=== PATIENT | female | born 1940 | race Caucasian/White ===

== ENCOUNTER → 2024-03-07 11:31 | Outpatient (REF) | payer OTHER, SELFPAY | LOC: RAD 11:31 | PROVIDERS: ATTENDING PHYSICIAN Physician Assistant Medical | DX: R10.84 Generalized abdominal pain (principal) | CPT/HCPCS: 74176 ==

== ENCOUNTER 2024-05-15 12:50 | Emergency (ER) | payer OTHER, SELFPAY ==
[2024-05-15 13:08] VITALS: BP 130/73
--- NOTE | 2024-05-15 14:02 | ED.GENMED ---
History of Present Illness
<Rodolfo Moulton PA-C - Last Filed: 05/16/24 09:11>
General
Chief Complaint: Musculo-Skeletal Complaint
Time Seen by Provider: 05/15/24 13:52
History of Present Illness
History of Present Illness:
83-year-old female with history of COPD and former tobacco abuse presents to the emergency department for evaluation of intractable bilateral hip pain radiating down both legs, worsening over the past 2 months. Reports that she developed severe
pain with any degree of movement. Over the past several weeks she has had increasing cramping and numbness to bilateral calves. She was started on a course of prednisone as well as gabapentin by her primary care physician. She comes into the ER
today due to concern for urinary incontinence that began suddenly last night. Occurred last night as well as this morning however she was able to spontaneously provide a urine specimen in the emergency department. Denies any current saddle
anesthesias. No fevers or night sweats.
<Sam Tadeo PA-C - Last Filed: 05/15/24 18:26>
General
Source: patient
Exam Limitations: none
Past History
<Rodolfo Moulton PA-C - Last Filed: 05/16/24 09:11>
Past History
ED Past Medical History: HTN
ED Past Surgical History: Orthopedic (Gil knee replacements, R hip replacement)
Social History
Tobacco: Former smoker
Alcohol: None
Personal:
Living: with family
Employment: Retired
Family History
Family History: Other (Noncontributory)
Review of Systems
<Rodolfo Moulton PA-C - Last Filed: 05/16/24 09:11>
Review of Systems
Allergies reviewed?: Yes
All Other Systems: ROS reviewed and negative except as documented in HPI and ROS
Phy Exam
<Rodolfo Moulton PA-C - Last Filed: 05/16/24 09:11>
Physical Exam
Physical Exam:
GEN: Well appearing, NAD, WDWN
HEENT: Oral mucosa moist, no scleral icterus
Cardiac: Regular rate
Lung: No respiratory distress, no tachypnea
MSK: No gross deformity or injuries. Bilateral hip ROM normal however pain is elicited particularly w/ external and internal rotation.
Skin: Good color, no pallor or jaundice, no rashes
Neuro: AO x3, BLE strength 5/5 in all mcclure. Patellar reflexes blunted bilaterally. Normal sensation throughout
Psych: Calm, cooperative
Course
<Rodolfo Moulton PA-C - Last Filed: 05/16/24 09:11>
Orders/Labs/Results
Orders:
Orders
05/15/24 13:25
Urinalysis Reflex To Culture Urgent
Date Specimen was Collected: 05/15/24
Time Specimen was Collected: 13:24
Urine Microscopic Reflex Cult Urgent
05/15/24 14:02
CR Lumbar Spine Comp Min 4 Vw* Urgent
Comment:
Reason For Exam: low back/bilat hip pain
05/15/24 14:11
Complete Blood Count/With Diff Urgent
Comprehensive Metabolic Panel Urgent
05/15/24 14:41
Morphine Sulfate 4 mg IV NOW STA
05/15/24 15:47
MR Lumbar Without Contrast Urgent
Comment:
Reason For Exam: low back pain, urinary incontinence
Recent pill cam endoscopy?: No
05/15/24 16:43
Ketorolac [Toradol] 15 mg IV NOW STA
CR Chest Portable - 1 View Urgent
Comment:
Reason For Exam: hypoxia
Reason Study Needs to be Portable: Other
Abnormal Lab Results
05/15/24 05/15/24
13:25 14:11
RDW 16.3 H %
(11.5-14.5)
Absolute Neuts (auto) 6.8 H 10^3/uL
(1.4-6.5)
Absolute Monos (auto) 1.0 H 10^3/uL
(0.1-0.6)
Lymphocytes % 15.4 L %
(20.5-51.1)
Monocytes % 10.6 H %
(1.7-9.3)
BUN 38 H mg/dl
(7-17)
Creatinine 1.2 H mg/dL
(0.6-1.0)
Glucose 119 H mg/dl
(70-99)
Leukocyte Esterase Rfl Trace A
(Negative)
05/15/24 14:11
05/15/24 14:11
Vital Signs
Initial and Last Documented VS:
Initial Vital Signs
Temp Pulse Resp BP Pulse Ox
98.4 F 71 18 130/73 92
05/15/24 13:08 05/15/24 13:08 05/15/24 13:08 05/15/24 13:08 05/15/24 13:08
Last Documented Vital Signs
Temp Pulse Resp BP Pulse Ox
98.4 F 72 14 138/78 92
05/15/24 13:08 05/15/24 18:15 05/15/24 18:15 05/15/24 17:57 05/15/24 18:15
Khrislt;Sam Tadeo PA-C - Last Filed: 05/15/24 18:26>
Orders/Labs/Results
Orders:
Orders
05/15/24 13:25
Urinalysis Reflex To Culture Urgent
Date Specimen was Collected: 05/15/24
Time Specimen was Collected: 13:24
Urine Microscopic Reflex Cult Urgent
05/15/24 14:02
CR Lumbar Spine Comp Min 4 Vw* Urgent
Comment:
Reason For Exam: low back/bilat hip pain
05/15/24 14:11
Complete Blood Count/With Diff Urgent
Comprehensive Metabolic Panel Urgent
05/15/24 14:41
Morphine Sulfate 4 mg IV NOW STA
05/15/24 15:47
MR Lumbar Without Contrast Urgent
Comment:
Reason For Exam: low back pain, urinary incontinence
Recent pill cam endoscopy?: No
05/15/24 16:43
Ketorolac [Toradol] 15 mg IV NOW STA
CR Chest Portable - 1 View Urgent
Comment:
Reason For Exam: hypoxia
Reason Study Needs to be Portable: Other
Abnormal Lab Results
05/15/24 05/15/24
13:25 14:11
RDW 16.3 H %
(11.5-14.5)
Absolute Neuts (auto) 6.8 H 10^3/uL
(1.4-6.5)
Absolute Monos (auto) 1.0 H 10^3/uL
(0.1-0.6)
Lymphocytes % 15.4 L %
(20.5-51.1)
Monocytes % 10.6 H %
(1.7-9.3)
BUN 38 H mg/dl
(7-17)
Creatinine 1.2 H mg/dL
(0.6-1.0)
Glucose 119 H mg/dl
(70-99)
Leukocyte Esterase Rfl Trace A
(Negative)
05/15/24 14:11
05/15/24 14:11
Vital Signs
Initial and Last Documented VS:
Initial Vital Signs
Temp Pulse Resp BP Pulse Ox
98.4 F 71 18 130/73 92
05/15/24 13:08 05/15/24 13:08 05/15/24 13:08 05/15/24 13:08 05/15/24 13:08
Last Documented Vital Signs
Temp Pulse Resp BP Pulse Ox
98.4 F 72 14 138/78 92
05/15/24 13:08 05/15/24 18:15 05/15/24 18:15 05/15/24 17:57 05/15/24 18:15
<Rodolfo Moulton PA-C - Last Filed: 05/16/24 09:11>
MDM/Problems Addressed
MDM/Problems Addressed:
Patient has mild neurologic deficits and has good rectal tone nevertheless cannot discount the severity of acute urinary incontinence. Postvoid residual in the emergency department is normal and she did have 1 bout of urination she was continent.
Given the concern for progressively worsening lumbar spinal disease with potential clot urgent MRI which we will obtain in the emergency department. Disposition will be pending MRI imaging results.
<Sam Tadeo PA-C - Last Filed: 05/15/24 18:26>
*Critical Care Note
Total Time (30-74mins, 75-104mins- exclusive of procedures): Not Applicable
<Rodolfo Moulton PA-C - Last Filed: 05/16/24 09:11>
Update Note
Update Note:
Post void residual 14mL
<Sam Tadeo PA-C - Last Filed: 05/15/24 18:26>
Update Note
Update Note:
Post void residual 14mL
received care of patient upon pending MRI. There is no findings on the MRI to show cause for urinary incontinence. There is a herniated disc at L4-L5. Patient is examined she is resting comfortably in bed.
No indication for any intervention at this point. Admission not indicated. Patient does have underlying history of COPD. She follows with her family doctor but did recommend following up with a spiral winder as her pulse ox's are borderline low
here. There is no respiratory distress on assessment.
ED Attending Note
<Rodolfo Moulton PA-C - Last Filed: 06/21/24 09:11>
-
Portions of this chart may have been created with voice recognition software.� Occasional wrong word or��sound alike� substitutions may have occurred due to the inherent limitations of voice recognition software.
Discharge Plan
Departure
Patient Disposition: Home (Routine Discharge)
Date of Disposition: 05/15/24
Time of Disposition: 18:24
Patient with high blood pressure during this ER visit?: No
Discharge Problem:
Acute lumbar radiculopathy
Prescriptions:
No Action
paroxetine HCl 10 MG tablet
10 mg PO DAILY
lefifsrh-grn-IY-lycopen-lutein [Centrum Silver] 1 EACH tablet
1 ea PO DAILY
irbesartan 150 MG tablet
150 mg PO .IN THE AM
calcium carb-D3-mag ox-zinc ox [Fly Mag Zinc Plus D3] 1 EACH tablet
1 ea PO DAILY
hydrocodone-acetaminophen [[place]] 1 EACH tablet
1 ea PO Q6HPRN PRN (Reason: pain) Qty: 40 0RF
Rx Instructions:
Take 1 tablet four times a day, every 6 hours for pain
lorazepam 1 MG tablet
1 mg PO TIDPRN PRN (Reason: pain/spasms) Qty: 40 0RF
Referrals:
Bravo Monson MD [Family Provider] -
Activity Restrictions/Additional Instructions:
Please follow-up with your family doctor for further evaluation. Return here for worsening symptoms.
Interventions
Interventions:
*Risk Screen - Suicide Last Done: 05/15/24 13:08
*General Assessment Last Done: 05/15/24 13:08
*Neglect/Abuse Screening Last Done: 05/15/24 13:08
ED- Fall Risk Assessment Last Done: 05/15/24 14:09
*ED COVID-19 Vaccine History Last Done: 05/15/24 14:09
*Nursing Disposition Last Done: 05/15/24 18:41
ED-Musculoskeletal Assessment Last Done: 05/15/24 14:09
Discharge Date and Time
Discharge Date/Time: 05/15/24 18:41
Print Language: HAITIAN
[2024-05-15 14:08] VITALS: BMI 33.8
[2024-05-15 14:09] VITALS: BP 136/62
[2024-05-15 14:12] LABS: Urine Albumin Negative (Neg - Trace); Urine Bilirubin Negative (Negative); Urine Character Clear (Clear); Urine Color Yellow; Urine Glucose Negative (Negative); Urine Ketone Negative (Negative); Urine Leukocyte Trace (Negative); Urine Nitrite Negative (Negative); Urine Occult Blood Negative (Negative); Urine Urobilinogen Negative (Neg - 1+)
[2024-05-15 14:15] VITALS: BP 136/62
[2024-05-15 14:22] LABS: % Basophils 0.6 % (0-2); % Eosinophils 1.7 % (0-6); % Immature Granulocytes 0.3 % (0-0.5); % Lymphocytes 15.4 % (20.5-51.1); % Monocytes 10.6 % (1.7-9.3); % Neutrophils 71.4 % (42.2-75.2); Absolute Basophils 0.1 10^3/uL (0-0.2); Absolute Eosinophils 0.2 10^3/uL (0-0.7); Absolute Lymphocytes 1.5 10^3/uL (1.2-3.4); Absolute Neutrophils 6.8 10^3/uL (1.4-6.5); Hematocrit 40.1 % (37.0-47.0); Hemoglobin 13.4 g/dL (12.0-16.0); Mean Corp Hgb Conc. 33.4 g/dL (33.0-37.0); Mean Corpuscular Hgb 29.4 pg (27.0-31.0); Mean Corpuscular Volume 87.9 fL (81.0-99.0); Mean Platelet Volume 10.2 fL (7.4-10.4); Nucleated Red Blood Cells % 0 %; Platelet Count 260 10^3/uL (130-400); Red Blood Cell Count 4.56 10^6/uL (4.20-5.40); Red Cell Dist. Width 16.3 % (11.5-14.5); White Blood Cell Count 9.5 10^3/uL (4.8-10.8)
[2024-05-15 14:36] LABS: ALT (SGPT) 22 U/L (0-35); AST (SGOT) 30 U/L (14-36); Albumin 4.2 g/dl (3.5-5.0); Alkaline Phosphatase 56 U/L (38-126); Blood Urea Nitrogen 38 mg/dl (7-17); Calcium 10.1 mg/dl (8.4-10.2); Carbon Dioxide 29 mmol/L (22-30); Chloride 104 mmol/L (98-107); Estimated Creatinine Clearance 39 ml/min; Glucose 119 mg/dl (70-99); Potassium 4.8 mmol/L (3.5-5.1); Sodium 140 mmol/L (135-145); Total Protein 7.2 g/dl (6.3-8.2); eGFR 44.64
[2024-05-15 15:03] LABS: Urine Urothelial Cell 0-2 /LPF (FEW)
[2024-05-15 15:04] LABS: Urine Amorphous Seen; Urine Hyaline Cast 0-2 /LPF (0-2); Urine Red Blood Cell 0-2 /HPF (0-2)
[2024-05-15] MEDS: MORPHINE SULFATE 4 MG IV (15:18)
[2024-05-15 15:54] VITALS: BP 174/62
[2024-05-15 16:00] VITALS: BP 154/68
[2024-05-15 17:57] VITALS: BP 138/78
[2024-05-15] MEDS: TORADOL 15 MG IV (18:07)
== END 2024-05-15 18:41 | disposition home or self-care (01) ==
LOC: EMR 12:50
PROVIDERS: Emergency Medicine; Physician Assistant; EMERGENCY PHYSICIAN Emergency Medicine; FAMILY PHYSICIAN Family Medicine
DX: M51.16 Intervertebral disc disorders with radiculopathy, lumbar region (principal); R32 Unspecified urinary incontinence; J44.9 Chronic obstructive pulmonary disease, unspecified; I10 Essential (primary) hypertension; Z96.641 Presence of right artificial hip joint; Z96.653 Presence of artificial knee joint, bilateral; Z87.891 Personal history of nicotine dependence
CPT/HCPCS: 99284; 96374; 96375; 51798; 71045; 72110; 72148; 80053; 81003; 81015; 85025

== ENCOUNTER 2024-07-28 10:39 | Emergency (ER) | payer OTHER, SELFPAY ==
[2024-07-28 10:51] VITALS: BP 147/69
--- NOTE | 2024-07-28 12:10 | ED.GENMED ---
History of Present Illness
General
Chief Complaint: Back Pain
Source: patient
Time Seen by Provider: 07/28/24 11:51
History of Present Illness
History of Present Illness:
83yoF with a history of chronic back pain, COPD, and hypertension presenting for evaluation of back pain. She reports ongoing low back pain for the past several months. Pain radiates to the bilateral posterior thighs. Pain is worse with movement.
Patient follows with pain management for her back and she had an epidural injection in May without any improvement. She is scheduled for another injection on 08/13/24. She is currently taking Tylenol and Vicodin for pain which does not help.
Patient was barely able to walk this morning due to her pain so she came to the ED. She denies any trauma, fevers, incontinence, saddle anesthesia. No history of cancer. Patient was seen in the ED in April for similar complaints. Patient
underwent an MRI of her lumbar spine during that visit which showed multilevel degenerative disc disease. She has a remote history of a laminectomy several years ago.
Past History
Past History
ED Past Medical History: HTN
ED Past Surgical History: Orthopedic (Gil knee replacements, R hip replacement)
Social History
Tobacco: Former smoker
Alcohol: None
Personal:
Living: with family
Employment: Retired
Family History
Family History: Other (Noncontributory)
Phy Exam
General Physical Exam
General Presentation: well appearing and no apparent distress
General age: appears stated age
General Skin: warm and dry
General Habitus: normal
General Mental: alert
Neurological Exam
Neurological Exam: alert and other (5/5 strength in bilateral lower extremities)
Musculoskeletal Exam
Musculoskeletal Exam: back tenderness (No skin changes to lumbar spine. Mild tenderness to bilateral paraspinal region. Negative straight leg raise bilaterally. )
Psychiatric Exam
Psychiatric Exam: normal mood/affect
Course
Orders/Labs/Results
Orders:
Orders
07/28/24 12:08
Dexamethasone Sod Phosphate [Decadron] 10 mg IV NOW STA
Ketorolac [Toradol] 15 mg IV NOW STA
Morphine Sulfate 4 mg IV NOW STA
Pt Eval And Treat Urgent
Activity Level: Out of Bed- Ad Mansi
07/28/24 12:15
Lidocaine [Lidocaine 4% Patch] 1 patch TOPICAL DAILY
Apply Lidocaine patch(s) to:: low back
07/28/24 13:02
Case Management Consult ONCE
Case Management Consult: Discharge Planning
07/28/24 14:07
Morphine Sulfate 4 mg IV NOW STA
Vital Signs
Initial and Last Documented VS:
Initial Vital Signs
Temp Pulse Resp BP
98.0 F 74 18 147/69
07/28/24 10:51 07/28/24 10:51 07/28/24 10:51 07/28/24 10:51
Last Documented Vital Signs
Temp Pulse Resp BP Pulse Ox
98.0 F 77 18 129/71 95
07/28/24 10:51 07/28/24 13:35 07/28/24 13:35 07/28/24 13:35 07/28/24 13:35
MDM/Problems Addressed
Differential Diagnosis Includes:
83yoF here with acute on chronic low back pain. C/o trouble walking due to pain. No reported injuries. No red flags in history including no fevers, saddle anesthesia, incontinence, hx of cancer. Follows with pain management for her back. She is
afebrile and hemodynamically stable. She is well appearing in no distress. She had pain primarily with movement of the trunk on exam. Bilateral lower extremities neurovascularly intact. Differential diagnosis includes but is not limited to: acute
exacerbation of chronic back pain, lumbar radiculopathy, sciatica, doubt cauda equina
Initial ED plan: No indication for imaging at this time as she had an MRI of her back <3 months ago. Will give IV Toradol, Decadron, morphine and lidocaine patch for pain. Will have PT evaluate patient.
*Critical Care Note
Total Time (30-74mins, 75-104mins- exclusive of procedures): Not Applicable
Update Note
Update Note:
Pain improved after medications but still present. She was able to ambulate with PT and physical therapist is recommending outpatient/home PT. Case management consulted to assist with this. No indication for hospitalization. Will prescribe Medrol
dose pack. She has Vicodin at home that she can use PRN. She was also advised to add lidocaine patches. Patient will call her auto painter tomorrow for f/u. ED return precautions discussed. She was discharged in stable condition.
ED Attending Note
-
Portions of this chart may have been created with voice recognition software.� Occasional wrong word or��sound alike� substitutions may have occurred due to the inherent limitations of voice recognition software.
Discharge Plan
Departure
Patient Disposition: Home (Routine Discharge)
Date of Disposition: 07/28/24
Time of Disposition: 14:06
Patient with high blood pressure during this ER visit?: No
Discharge Problem:
Acute exacerbation of chronic low back pain
Instructions: Low Back Pain (DC)
Prescriptions:
New
methylprednisolone [Medrol (Kristian)] 4 mg tablets,dose pack
See Rx Instructions .ROUTE .COMPLEX Qty: 21 0RF
Rx Instructions:
orally per package directions
No Action
paroxetine HCl 10 MG tablet
10 mg PO DAILY
euukpqnv-qmz-LY-lycopen-lutein [Centrum Silver] 1 EACH tablet
1 ea PO DAILY
irbesartan 150 MG tablet
150 mg PO .IN THE AM
calcium carb-D3-mag ox-zinc ox [Fly Mag Zinc Plus D3] 1 EACH tablet
1 ea PO DAILY
hydrocodone-acetaminophen [[place]] 1 EACH tablet
1 ea PO Q6HPRN PRN (Reason: pain) Qty: 40 0RF
Rx Instructions:
Take 1 tablet four times a day, every 6 hours for pain
lorazepam 1 MG tablet
1 mg PO TIDPRN PRN (Reason: pain/spasms) Qty: 40 0RF
Referrals:
Bravo Monson MD [Family Provider] -
Activity Restrictions/Additional Instructions:
Take Medrol dose pack as prescribed. Use lidocaine patches daily (12 hours on, 12 hours off). Continue taking hydrocodone as needed for severe pain.
Please follow-up with your pain management doctor tomorrow.
Return to the ER with any new or worsening symptoms.
Interventions
Interventions:
*Risk Screen - Suicide Last Done: 07/28/24 12:29
*General Assessment Last Done: 07/28/24 12:29
*Neglect/Abuse Screening Last Done: 07/28/24 12:29
*ED COVID-19 Vaccine History Last Done: 07/28/24 12:29
*Nursing Disposition Last Done: 07/28/24 14:35
ED-Musculoskeletal Assessment Last Done: 07/28/24 12:29
Discharge Date and Time
Discharge Date/Time: 07/28/24 14:29
Print Language: KHMER
[2024-07-28] MEDS: LIDOCAINE 4% PATCH 1 PATCH TOPICAL (12:21)
[2024-07-28] MEDS: TORADOL 15 MG IV (12:22)
[2024-07-28] MEDS: MORPHINE SULFATE 4 MG IV ×2 (12:22→14:23)
[2024-07-28] MEDS: DECADRON 10 MG IV (12:23)
[2024-07-28 12:24] VITALS: BP 154/72
[2024-07-28 12:54] VITALS: BP 154/79; PULSE 68; O2SAT 91
--- NOTE | 2024-07-28 13:24 | CM ---
Case management consult placed for PT. Chart reviewed. Patient has had chronic back pain which has worsened over the last couple of days. CM introduced self and role. also at bedside.
Patient stated that she would is in increased pain that has now gone down to her thighs. She is agreeable to VN, but does not think she can move. CM shared information with attending LEIGHANN.
PLAN: Visiting home PT/OT.
[2024-07-28 13:35] VITALS: BP 129/71
== END 2024-07-28 14:29 | disposition home or self-care (01) ==
LOC: EMR 10:39
PROVIDERS: EMERGENCY PHYSICIAN Emergency Medicine; FAMILY PHYSICIAN Family Medicine
DX: G89.29 Other chronic pain (principal); M54.50 Low back pain, unspecified; I10 Essential (primary) hypertension; J44.9 Chronic obstructive pulmonary disease, unspecified; Z87.891 Personal history of nicotine dependence
CPT/HCPCS: 99284; 96374; 96375; 96376

== ENCOUNTER 2024-09-26 10:17 | Emergency (ER) | payer OTHER, SELFPAY ==
[2024-09-26 10:18] VITALS: BP 153/84
[2024-09-26] MEDS: TORADOL 30 MG IM (11:48)
[2024-09-26] MEDS: LIDOCAINE 4% PATCH 1 PATCH TOPICAL (11:49)
[2024-09-26 11:55] VITALS: BMI 35.9
--- NOTE | 2024-09-26 12:30 | ED.GENMED ---
History of Present Illness
General
Chief Complaint: Gait Dysfunction
Source: patient
Time Seen by Provider: 09/26/24 11:23
History of Present Illness
History of Present Illness:
83-year-old female with past medical history of previous hepatitis B and chronic orthopedic issues presenting to the ER for evaluation of acute on chronic lower back pain, today woke up and was having a harder time ambulating which is what prompted
her to come to the ER. Patient reports that her back issues have been gradually worsening over the last few months. She has been to her primary care provider and has gone and seen pain management who performed 2 separate procedures but patient has
not had any relief. She does note that she had an MRI here a few months ago which showed some spinal stenosis and nerve related issues. She is now scheduled to follow-up with a spinal surgeon at [facility] on October 15 but due to the issues today
decided to come to the ER for further evaluation. Patient did take 2 Vicodin that she had leftover from her pain management provider which she said did help the pain. Denies any focal weakness or numbness, bowel or urinary incontinence, saddle
anesthesias, fevers or infectious symptoms, traumatic injuries or any other concerns.
Past History
Past History
ED Past Medical History: HTN and Other
ED Past Surgical History: Orthopedic (Gil knee replacements, R hip replacement)
Social History
Tobacco: Former smoker
Alcohol: None
Drug: None
Personal:
Living: with family
Employment: Retired
Family History
Family History: Other (Noncontributory)
Review of Systems
Review of Systems
All Other Systems: ROS reviewed and negative except as documented in HPI and ROS
Phy Exam
Physical Exam
Physical Exam:
GENERAL: Alert , in no apparent distress at rest but does grimace with movement
EYE: clear conjunctiva b/l
NECK: Supple
ENT: o/p clr, mmm.
BACK: limited range of motion, no focal tenderness, no midline bony tenderness, no rashes
NEUROLOGICAL: Alert and oriented, no focal neuro deficits. Patellar deep tendon reflexes intact and equal bilaterally, sensation grossly intact and equal to light touch bilateral lower extremities
SKIN: Warm and dry, skin intact.
MUSCULOSKELETAL: No edema, well perfused. EHL intact bilaterally
PSYCH: Normal and appropriate interaction.
Scores
Heart Failure Risk
Heart Failure Risk Score: Not Applicable
Heart Score for Chest Pain Patients
STEMI patient?: Not applicable
Withdrawal Assessment of Alcohol
Withdrawal Assessment Completed?: Not applicable
Course
Orders/Labs/Results
Orders:
Orders
09/26/24 11:36
Ketorolac [Toradol] 30 mg IM NOW STA
Lidocaine [Lidocaine 4% Patch] 1 patch TOPICAL NOW STA
Apply Lidocaine patch(s) to:: lower back
Physical Therapy Consult [Pt Eval And Treat] Urgent
Treatment: ambulatory difficulties
Activity Level: Ambulate
09/26/24 12:30
Case Management Consult ONCE
Case Management Consult: Discharge Planning
Comment: needs home PT arranged
Vital Signs
Initial and Last Documented VS:
Initial Vital Signs
Temp Pulse Resp BP Pulse Ox
97.9 F 81 16 153/84 93
09/26/24 10:18 09/26/24 10:18 09/26/24 10:18 09/26/24 10:18 09/26/24 10:18
Last Documented Vital Signs
Temp Pulse Resp BP Pulse Ox
97.9 F 81 16 153/84 93
09/26/24 10:18 09/26/24 10:18 09/26/24 10:18 09/26/24 10:18 09/26/24 10:18
MDM/Problems Addressed
Differential Diagnosis Includes:
nerve impingement, disc herniation, spinal stenosis, neurologic claudication, cauda equina
MDM/Problems Addressed:
83-year-old female presenting to the ER for evaluation of worsening back pain, today was having a harder time ambulating secondary to the pain. Pain somewhat improved following Vicodin. No focal neurologic deficits at time of my exam. Will review
patient's MRI from this facility. Pain control with Toradol and topical Lidoderm. Will order physical therapy consult. Disposition pending
Chronic conditions affecting care: Other (chronic back pain)
*Pulse Oximetry
Patient hypoxic: no
*Critical Care Note
Total Time (30-74mins, 75-104mins- exclusive of procedures): Not Applicable
Data Reviewed
Review of Other/Old Records Reveals: Records
Source: patient, records and spouse
Comment
Comment:
MRI from 05/15/2024:
IMPRESSION: At L4/5, degenerative anterolisthesis and facet osteoarthritis combine to cause severe spinal canal stenosis. This has progressed. There is severe left foraminal stenosis. New 4 mm left paracentral disc extrusion. This tracks slightly
superiorly from the level of the disc space. It contacts medial aspect of left L4 nerve root.
Patient has undergone bilateral L2 and L3 partial laminectomies since previous MRI. Assessment for scar tissue in spinal canal is limited without IV gadolinium
At L1/2, degenerative retrolisthesis and facet osteoarthritis combine to cause moderate spinal canal stenosis as well as severe right foraminal stenosis
At L2/3, annular bulge contributes to moderate right foraminal stenosis.
At L3/4, annular bulge and facet osteoarthritis combine to cause moderate spinal canal stenosis and moderate bilateral foraminal stenosis
Severe left and moderate right foraminal stenosis at L5/S1 secondary to degenerative findings
Patient Management
Social determinants of health affecting care: Living situation and Strong social support
Discussion with other providers: PCP and Other (PT)
Escalation/DeEscalation of care consider admission/obs:
Patient able to ambulate with PT without much difficulty. Reccomends home PT. CM consulted to help facilitate. Patient noting relief with meds provided
Patient see by CM. They were able to arrange home PT. I notified patients PCP about ED visit and they will follow up. Medrol dosepak sent to pharmacy
ED Attending Note
-
Portions of this chart may have been created with voice recognition software.� Occasional wrong word or��sound alike� substitutions may have occurred due to the inherent limitations of voice recognition software.
Discharge Plan
Departure
Patient Disposition: Home (Routine Discharge)
Date of Disposition: 09/26/24
Time of Disposition: 13:50
Patient with high blood pressure during this ER visit?: Yes
Discharge Problem:
Low back pain
Instructions: Lumbar spinal stenosis
Prescriptions:
New
methylprednisolone [Medrol (Kristian)] 4 mg tablets,dose pack
4 mg PO DIRECTED Qty: 21 0RF
No Action
paroxetine HCl 10 MG tablet
10 mg PO DAILY
dzpqsumv-xaw-DI-lycopen-lutein [Centrum Silver] 1 EACH tablet
1 ea PO DAILY
irbesartan 150 MG tablet
150 mg PO .IN THE AM
calcium carb-D3-mag ox-zinc ox [Fly Mag Zinc Plus D3] 1 EACH tablet
1 ea PO DAILY
hydrocodone-acetaminophen [[place]] 1 EACH tablet
1 ea PO Q6HPRN PRN (Reason: pain) Qty: 40 0RF
Rx Instructions:
Take 1 tablet four times a day, every 6 hours for pain
lorazepam 1 MG tablet
1 mg PO TIDPRN PRN (Reason: pain/spasms) Qty: 40 0RF
methylprednisolone [Medrol (Kristian)] 4 mg tablets,dose pack
See Rx Instructions .ROUTE .COMPLEX Qty: 21 0RF
Rx Instructions:
orally per package directions
Referrals:
Bravo Monson MD [Family Provider] -
Interventions
Interventions:
*Risk Screen - Suicide Last Done: 09/26/24 10:18
*General Assessment Last Done: 09/26/24 10:18
*Neglect/Abuse Screening Last Done: 09/26/24 10:18
*Nursing Disposition Last Done: 09/26/24 14:53
ED- Neurological Assessment Last Done: 09/26/24 11:54
ED-Musculoskeletal Assessment Last Done: 09/26/24 11:54
ED Swallowing Screen Last Done: 09/26/24 11:54
Discharge Date and Time
Discharge Date/Time: 09/26/24 14:53
Print Language: ROMANSH
--- NOTE | 2024-09-26 14:10 | CM ---
CM following re: discharge planning.
CM consulted to arrange VN services for pt at home.
Reviewed pt's chart, met with pt and pt's spouse at bedside.
Pt is an 83 year old female, arrived to ED with primary concerns of Gait Dysfunction
Pt reports she lives with [facility], has 3 supportive children. Pt described herself as independent in all areas [employer]. No DME, VN or SNF history.
PT evaluations noted - home health level of care recommended. both pt and her are aware, expressed their agreement. A list of VN vendors provided. Pt preferred [facility]. A referral to [facility] made.
PCP: Bravo quach
pharmacy: [facility].
D/C plan; home with [facility] and family support. to transport.
--- NOTE | 2024-09-26 14:13 | VNURNOTE ---
Home Health Liaison met with patient and spouse Garfield at bedside to discuss [facility] nurse/therapy, visits, schedule and homebound status. Patient is agreeable and understands that visits at home will be 2-3 x per week to assess and teach medical
management.
[facility] brochure provided with contact information. Patient is aware that [facility] will contact them for start of care in 1-2 days after discharge from .
[facility] referral completed in [facility].
== END 2024-09-26 14:53 | disposition home or self-care (01) ==
LOC: EMR 10:17
PROVIDERS: EMERGENCY PHYSICIAN Student in an Organized Health Care Education/Training Program; FAMILY PHYSICIAN Family Medicine
DX: M54.50 Low back pain, unspecified (principal); G89.29 Other chronic pain; I10 Essential (primary) hypertension; Z87.891 Personal history of nicotine dependence; Z96.653 Presence of artificial knee joint, bilateral; Z96.641 Presence of right artificial hip joint
CPT/HCPCS: 96372; 99284

== ENCOUNTER 2024-11-10 12:20 | Inpatient (IN) | payer OTHER, SELFPAY ==
[2024-11-05 13:26] VITALS: BMI 33.5
[2024-11-05 13:48] LABS: Hematocrit 41.9 % (37.0-47.0); Hemoglobin 13.5 g/dL (12.0-16.0); Mean Corp Hgb Conc. 32.2 g/dL (33.0-37.0); Mean Corpuscular Hgb 30.3 pg (27.0-31.0); Mean Corpuscular Volume 94.2 fL (81.0-99.0); Mean Platelet Volume 10.8 fL (7.4-10.4); Platelet Count 287 10^3/uL (130-400); Red Blood Cell Count 4.45 10^6/uL (4.20-5.40); Red Cell Dist. Width 14.4 % (11.5-14.5); White Blood Cell Count 7.1 10^3/uL (4.8-10.8)
[2024-11-05 14:48] LABS: ALT (SGPT) 15 U/L (0-35); AST (SGOT) 25 U/L (14-36); Albumin 4.4 g/dl (3.5-5.0); Alkaline Phosphatase 43 U/L (38-126); Blood Urea Nitrogen 38 mg/dl (7-17); Carbon Dioxide 29 mmol/L (22-30); Chloride 101 mmol/L (98-107); Estimated Creatinine Clearance 32 ml/min; Glucose 105 mg/dl (70-99); Potassium 4.5 mmol/L (3.5-5.1); Sodium 141 mmol/L (135-145); Total Bilirubin 0.8 mg/dl (0.2-1.3); Total Protein 7.1 g/dl (6.3-8.2)
[2024-11-10] VITALS (18 sets, daily range): BP systolic 50–143; BP diastolic 43–73; BMI 33.5
[2024-11-10] MEDS: LYRICA 150 MG PO (12:27)
[2024-11-10] MEDS: CELEBREX 200 MG PO (12:27)
[2024-11-10] MEDS: TYLENOL 1000 MG PO ×2 (12:28→20:40)
[2024-11-10] MEDS: NORMOSOL-R/PLASMALYTE-A 1000 IV ×2 (12:53→20:40)
[2024-11-10 13:07] LABS: INR 1.05; PT 14.1 Sec (11.4-14.6)
[2024-11-10 13:08] LABS: APTT 26.6 Sec (23.4-35.0)
--- NOTE | 2024-11-10 13:28 | W.DS.TRANS ---
DC Summary - Steel Rigger
-
Discharge Instructions:
Sleep Apnea Risk Low
Discharge Diagnosis/Procedures L4-5 lami-psf Dr. Vallejo 11/10/24
Diet As tolerated
Activity No strenuous activity
Driving Restrictions No driving
Instructions:
Stand-Alone Forms: [facility].
Changes to Home Medications: Yes
Discharge Medications:
DC Medications w/original date entered in [employer]
Vitamin D3 1 cap PO DAILY 11/06/24
calcium 1 tab PO DAILY 11/06/24
fluticasone fur. 200 mcg-umeclid 62.5 mcg-vilant 25 mcg inhalat.powder (Trelegy Ellipta) 1 inh inhalation DAILY 11/06/24
magnesium 1 cap PO DAILY 11/06/24
zclmvxgiqbau-ccvnsycd-fqscjj tablet 1 tab PO DAILY 11/06/24
paroxetine HCl 10 mg tablet (Paxil) 10 mg PO DAILY 11/06/24
valsartan 80 mg tablet 80 mg PO DAILY 11/06/24
zinc 1 cap PO DAILY 11/06/24
acetaminophen 300 mg-codeine 30 mg tablet 1 - 2 tab PO Q6H PRN mild pain #0 tabs 11/10/24
docusate sodium 100 mg capsule (Colace) 100 mg PO BID stool softner #1 cap 11/10/24
magnesium hydroxide 400 mg/5 mL oral suspension (Milk of Magnesia) 30 ml PO HS PRN Constipation #1 mL 11/10/24
oxycodone 5 mg tablet 5 mg PO Q6H PRN 1 tab moderate pain, 2 tabs severe pain #30 tabs 11/10/24
sennosides 8.6 mg tablet (Senokot) 17.2 mg (2 x 8.6 mg) PO BID laxative #2 tabs 11/10/24
tizanidine 2 mg capsule 2 mg PO TID muscle relaxer/sleep #30 caps 11/10/24
Home Medication Changes
docusate sodium 100 mg capsule (Colace) 100 mg PO BID stool softner #1 cap 11/10/24
magnesium hydroxide 400 mg/5 mL oral suspension (Milk of Magnesia) 30 ml PO HS PRN Constipation #1 mL 11/10/24
oxycodone 5 mg tablet 5 mg PO Q6H PRN 1 tab moderate pain, 2 tabs severe pain #30 tabs 11/10/24
sennosides 8.6 mg tablet (Senokot) 17.2 mg (2 x 8.6 mg) PO BID laxative #2 tabs 11/10/24
tizanidine 2 mg capsule 2 mg PO TID muscle relaxer/sleep #30 caps 11/10/24
Pending Results: No
--- NOTE | 2024-11-10 16:28 | OR.RPT ---
Operative Report
Operative Report
Date of Surgery: 11/10/2024
Surgeon: Rashad Vallejo
GREEN BUILDING ENERGY ENGINEER: Roslyn THRASHER served as television production assistant for this procedure as no qualified resident or fellow was able to be identified
PREOPERATIVE DIAGNOSES:
1. Lumbar spinal stenosis L4 to L5
2. Degenerative spondylolisthesis at L4-5.
3. Lumbar spondylosis.
POSTOPERATIVE DIAGNOSES:
Same
PROCEDURE:
1. Posterior spinal decompression consisting of laminectomy at L4, L5.
2. Posterior spinal arthrodesis with local autograft (same incision) and allograft (Xtant) L4 - L5.
3. Posterior non segmental instrumentation L4 to L5 (Nuvasive).
ANESTHESIA: General endotracheal.
ESTIMATED BLOOD LOSS: 75 mL
COMPLICATIONS: None
DISPOSITION: Stable, extubated to PACU.
INDICATION FOR PROCEDURE: This patient is a 83 y.o. - year-old female who comes in with a chief complaint of pain starts in her back and radiates bilaterally across the low back and down into the left buttock, described as achy, and radiates down
the anterolateral left thigh to the knee, and then continues in the left lateral distal leg, wraps into the dorsal foot, and toes 1, 2, described as sharp, severe, knife-like. She also reports bilateral leg heaviness and fatigues sensation when
ascending stairs. This is accompanied by numbness and burning sensation in all the described areas. Severity is rated 6 out of 10. The pain worsens with leaning forward and prolonged standing (tolerance <10 min) or walking. The pain is alleviated
with sitting. She denies weakness in the lower extremities, continuous issues with bowel and bladder function, or constitutional symptoms.
Radiographs reveal severe spondylosis and stenosis from 4 to L5, there is L4-5 spondylolisthesis. MRI shows multilevel stenosis, most severe at at L4-L5 due to ligamentum flavum hypertrophy and facet arthropathy.
As she had failed conservative measures of activity modification, oral medications, injection-type therapy, and continued having subjective, objective and corroborative imaging evidence of neurogenic claudication and axial low back pain with
multilevel spinal stenosis and spondylolisthesis, surgical treatment was offered. The patient understood the benefits, alternatives and risks of the procedure with risks including but not limited to risk of anesthesia, infection, nerve damage, blood
vessel damage, dural tear, blindness, need for further surgery, failure of fusion, failure of instrumentation, failure to relieve symptoms, adjacent level problems. She elected to proceed after undergoing preoperative medical clearance.
DESCRIPTION OF PROCEDURE: The patient was identified in the preoperative holding area. The site of surgery and consent verified with the patient. She was then brought to the Operating Room by the Anesthesia and Orthopedic Services. General
anesthesia was administered. The patient was intubated without difficulty. LIOR and SCD stockings were placed for mechanical DVT prophylaxis as well as a sterilely inserted Poe catheter. She was then positioned prone onto a John table with bony
prominences well padded. Abdomen was hanging free. Her back was prepped and draped in the usual sterile standard fashion. A hard stop surgical timeout performed with all members of the Operating Room staff, and 1 gram of IV Ancef given prior to
surgical start.
A midline skin incision was then made over the presumed L4 and L5
spinous processes down through the skin with a knife Bovie cautery down through the lumbodorsal fascia. Hemostasis was achieved. Deep dissection was taken of the bilateral hemilamina of the presumed L4 to L5 levels. At this point, intraoperative
fluoroscopy was used to confirm exposure of the intended levels. Once this was confirmed, further lateral dissection was taken out to the transverse processes of L4 to L5, again with excellent hemostasis achieved and deep self-retraining retractors
placed.
Decompression was then started, first by removal of the spinous
Processes with the spinous process cutter. A Leksell rongeur used to thin down the lamina and all this bone used harvested local autograft. A 3 mm neural emmanuel was then
used to thin down the laminae and further down to the level of the ligamentum flavum from L4 and L5. At each respective level the canal space was entered with a use of a microcurette followed by a #2 and a #3 Kerrison rongeur. A central laminectomy
was performed from L5 all the way up to L4.
At this point, bilateral lateral recess decompression was performed at the L4-5 levels with a Jennings elevator was used to protect the neural elements at all times. The stenosis was most severe particularly at the L3-4 level, osteotome was used to
perform inferior facetectomy at the L3-4 level to drywall stripper helper in the decompression. Following the decompression, the neural elements were noted to reconstitute from the prior areas of compression and neuromonitoring was stable throughout the entire
decompressive procedure.
Instrumentation was then performed consisting of bilateral pedicle screws from L4 to L5. Surgical technique included a starter point with a neural emmanuel based on anatomic landmarks of the transverse process in the respective pars. A pedicle probe was
then used to create a tract down through the pedicle. Pedicle markers were then used to confirm on AP and lateral fluoroscopic imaging adequate starting point trajectory of these screws. Screws placed and all with excellent purchase and checked on
AP and lateral fluoroscopic imaging to ensure no breaches.
A well-contoured in length freddie was then placed down on either side, set down with the appropriate tightening instrument. Distraction applied to first to the construct to allow final decompression and checking of the bilateral L4-5 levels, which
was sufficient as all traversing nerve roots at all the levels were noted to be free and mobile following the decompression.
A neural emmanuel was then used to decorticate the superior and inferior facet and all lateral joint surfaces and transverse process of L4 to L5 and harvested local autograft and allograft packed here for posterior fusion purposes. Compression was then
applied back onto the fusion construct and set screws set down with the appropriate final platform consultant. The wound was then irrigated with a liter of normal saline, followed by placement of a deep Hemovac drain.
The wound was then closed in a sequential fashion with 0 Vicryl, 2-0
Vicryl, and 3-0 Monocryl for the skin. A dry, sterile dressing was then applied. He was flipped back over supine on the hospital table, extubated without difficulty, had purposeful movement of all four extremities prior to leaving the Operating
Room.
I attest that I was present for and performed all flores and critical aspects of ths procedure.
[2024-11-10] MEDS: DILAUDID 0.25 MG IV (16:50)
[2024-11-10] MEDS: SYMBICORT 160/4.5 MCG INHALER INH (19:29)
[2024-11-10] MEDS: ULTRAM 50 MG PO (20:40)
[2024-11-10] MEDS: PAXIL PO (20:41)
[2024-11-10] MEDS: COLACE 100 MG PO (20:41)
[2024-11-10] MEDS: DECADRON 6 MG IV (20:41)
[2024-11-10] MEDS: SENOKOT 17.2 MG PO (20:41)
--- NOTE | 2024-11-10 21:30 | PTCARENOTE ---
Pt was not provided a brace prior to surgery. Central supply reported that did not have any, will follow up with morning staff to place order. Pt aware that she can not ambulate w/o brace per MD orders
[2024-11-10] MEDS: ANCEF 5 IV (22:58)
[2024-11-11] VITALS (8 sets, daily range): BP systolic 102–122; BP diastolic 45–85; PULSE 73–94; O2SAT 93–94
[2024-11-11] MEDS: TYLENOL 1000 MG PO ×4 (01:32→23:29)
[2024-11-11] MEDS: NORMOSOL-R/PLASMALYTE-A 1000 IV ×2 (01:32→11:22)
[2024-11-11] MEDS: ANCEF 5 IV (06:09)
--- NOTE | 2024-11-11 06:11 | PTCARENOTE ---
Reached out to Yadiel Serrano pond scaler Dr loco chan concerning orders for back brace for l4-l5 lami. He reported to followup with team in morning.
--- NOTE | 2024-11-11 07:08 | W.PN.SP ---
Today's Communication / Plan
-
PT for weight bearing as tolerated, OOB with activity restrictions of limiting excessive bending and twisting and lifting <5lbs for 3 weeks with arms.
LSO brace for comfort only
Upright AP and Lateral XR of the spine when able to stand for the radiographs
Advance diet slowly
Dispo planning to likely home with services
Assessment / Plan
-
POD#1 s/p laminectomy and instrumented fusion L4-5, doing well
Subjective / Objective
Subjective Data
Pt without complaint, bilateral leg pain resolved. No events overnight.
Objective Data
Vital Signs
Temp Pulse Resp BP Pulse Ox
97.8 F 77 16 122/62 93
11/11/24 03:00 11/11/24 03:00 11/11/24 03:00 11/11/24 03:00 11/11/24 03:00
Intake and Output
11/10/24 11/11/24 11/12/24
06:59 06:59 06:59
Intake Total 1805 / 1805
Output Total 450 / 450
Balance 1355 / 1355
Intake:
Oral fluids 480 / 480
IV fluids (Total) 1325 / 1325
Normosol 300 / 300
Output:
Drain Output (Total) 450 / 450
Lower Back Hemovac 450 / 450
Other:
Number of approximated LARGE 1
amounts of urine
Physical Exam
-
Clean dry dressing
5/5 Q/IP/EHl/TA/GSc
w/wp
[2024-11-11] MEDS: SYMBICORT 160/4.5 MCG INHALER 2 PUFF INH ×2 (07:14→20:17)
[2024-11-11] MEDS: SPIRIVA RESPIMAT 2.5 MCG 2 PUFF INH (07:15)
[2024-11-11 07:25] LABS: Hematocrit 35.9 % (37.0-47.0); Hemoglobin 11.8 g/dL (12.0-16.0)
[2024-11-11 07:52] LABS: Blood Urea Nitrogen 35 mg/dl (7-17); Carbon Dioxide 26 mmol/L (22-30); Chloride 103 mmol/L (98-107); Estimated Creatinine Clearance 41 ml/min; Glucose 127 mg/dl (70-99); Potassium 4.7 mmol/L (3.5-5.1); Sodium 139 mmol/L (135-145); eGFR 49.55
[2024-11-11] MEDS: SENOKOT 17.2 MG PO ×2 (08:13→20:48)
[2024-11-11] MEDS: DECADRON 6 MG IV (08:13)
[2024-11-11] MEDS: ULTRAM 50 MG PO (08:13)
[2024-11-11] MEDS: COLACE 100 MG PO ×2 (08:14→20:48)
[2024-11-11] MEDS: PAXIL 10 MG PO (08:14)
--- NOTE | 2024-11-11 10:40 | W.PN.ORTHO ---
Today's Communication / Plan
-
d/c am if stable
Assessment
.
Distal Motor Intact: Yes
Dressing:
Clean, dry and intact.
Assessment:
drain output >200 overnight and actively draining-will hold d/c for am if stable
-no hemodynamic compromise
Plan
.
Surgery / Date: L4-5 lami-psf Dr. Vallejo 11/10/24
Activity:
Out of bed.
PT/OT
Discharge Plan: Home
Subjective
.
.:
Patient resting comfortably.
Vital Signs and Labs
.
Vital Signs and Labs:
Lab Results
11/11/24 05:58
11/11/24 05:58
Temp Pulse Resp BP Pulse Ox
97.7 F 74 17 108/60 99
11/11/24 08:10 11/11/24 08:10 11/11/24 08:10 11/11/24 08:10 11/11/24 08:10
PT 14.1 Sec (11.4-14.6) 11/10/24 12:36
INR 1.05 11/10/24 12:36
Physical Exam
-
HEENT: No pallor, cyanosis, or jaundice. Throat clear.
NECK: Supple. No JVD.
RESPIRATORY: Lungs clear to auscultation.
CVS: S1, S2 normal. RRR.� No murmur, rub or gallop.
ABDOMEN: Soft, non-tender. No distension. BS+/normal.
EXTREMITIES: strength equal, no calf pain with palpation
FISHING FLOATS ASSEMBLER: AOx3. No focal deficits. human resources hr generalist grossly intact
[2024-11-11] MEDS: ProAmatine 5 MG PO (11:20)
[2024-11-11] MEDS: TYLENOL PO (11:20)
--- NOTE | 2024-11-11 11:25 | CM ---
Patient seen at bedside.
IMM explained & signed. In chart.
IA completed. Case management consult complete.
PT rec home health.
Options reviewed. [facility] preferred.
Notified liaison & referral entered in [facility]
Lives in a 1 story home with in [place]+ community, 1 step to enter
PLOF: ambulates with walker
DME: Walker, wheelchair
Denies HH/Rehab in past
Denies food/housing/utilities/transportation insecurities
PCP: Bravo Monson
Pharmacy: [facility]
PLAN: Home with VN
to transport
--- NOTE | 2024-11-11 11:53 | VNURNOTE ---
Home Health Liaison met briefly with patient to discuss [facility] nurse/therapy, visits, schedule. Patient is agreeable and understands that visits at home will be 2-3 x per week to assess and teach medical management. [facility] brochure provided with contact
information. Patient is aware that [facility] will contact them for start of care in 1-2 days after discharge from .
[facility] referral completed in [facility].
--- NOTE | 2024-11-11 14:24 | PN.CDI ---
CDI
- -
CDI:
Physician Documentation Request
Admit Date: 11/10/24 12:20
Dear Orthopedic Surgery,
Clinical Indicators:
Patient admitted with spinal stenosis; s/p laminectomy and instrumented fusion L4-5 11/10.
11/10 Anesthesia Report, IVF 1000 ml EBL 75 ml
11/11 PN, 'drain output >200 overnight and actively draining-will hold d/c for am if stable'
Hgb/Hct:
11/05/24 11/11/24
13:09 05:58
Hgb 13.5 11.8 L
Hct 41.9 35.9 L
Based on the above, could you clarify in the progress notes, the appropriate diagnosis, if significant, that supports the above abnormalities and additional evaluation, monitoring and/or treatment rendered:
Anemia, multifactorial due to acute blood loss and hemodilution
Anemia due to hemodilution only
Abnormal lab value, clinically insignificant
Other
Use of terms such as suspected, likely, concern for, or probable (associated with a specific diagnosis that is being evaluated, monitored, or treated as if it exists) are acceptable and can be coded in the inpatient setting, when documented at the
time of discharge.
Thank you,
Isa Robertson RN BSN
CDI Specialist
available via tiger text
Please use your independent medical judgment in providing your response.
[2024-11-12] MEDS: TYLENOL 1000 MG PO ×2 (05:27→12:33)
[2024-11-12] MEDS: SPIRIVA RESPIMAT 2.5 MCG 2 PUFF INH (07:04)
[2024-11-12] MEDS: SYMBICORT 160/4.5 MCG INHALER 2 PUFF INH (07:05)
[2024-11-12 07:46] VITALS: BP 133/61
[2024-11-12] MEDS: SENOKOT 17.2 MG PO (08:09)
[2024-11-12] MEDS: PAXIL 10 MG PO (08:10)
[2024-11-12] MEDS: COLACE 100 MG PO (08:10)
[2024-11-12 09:21] VITALS: BP 112/67; PULSE 84
--- NOTE | 2024-11-12 10:02 | W.PN.SP ---
Addendum entered and electronically signed by Rashad Valdez Cha, MD 11/14/24 10:09:
Hgb 11.8, likely hemodilution, continue surviellance for symptoms.
Original Note:
Today's Communication / Plan
-
PT for weight bearing as tolerated, OOB with activity restrictions of limiting excessive bending and twisting and lifting <5lbs for 3 weeks with arms.
LSO brace for comfort only
Upright AP and Lateral XR of the spine when able to stand for the radiographs
Advance diet as tolerated
Can discontinue hemovac drain when less than 75 cc/shift
Dispo planning to home with services
Assessment / Plan
-
POD#2 s/p Lumbar laminectomy and instrumented fusion L4-5
Subjective / Objective
Subjective Data
Patient without complaints. Able to walk around the halls and stairs yesterday. HV drain maintained for 200cc a shift.
Objective Data
Vital Signs
Temp Pulse Resp BP Pulse Ox
97.8 F 72 20 133/61 98
11/12/24 07:46 11/12/24 07:46 11/12/24 07:46 11/12/24 07:46 11/12/24 07:46
Intake and Output
11/11/24 11/12/24 11/13/24
06:59 06:59 06:59
Intake Total 1805 / 1805 2009
Output Total 450 / 450 145 / 145
Balance 1355 / 1355 1865 / 1865
Intake:
Oral fluids 480 / 480 1440 / 1440
IV fluids (Total) 1325 / 1325 570 / 570
Normosol 300 / 300
Output:
Drain Output (Total) 450 / 450 145 / 145
Lower Back Hemovac 450 / 450 145 / 145
Other:
Number of approximated MODERATE 1
amounts of urine
Number of approximated LARGE 1 2
amounts of urine
Lab Data
11/11/24 05:58
11/11/24 05:58
Physical Exam
-
NAD
03/30 Q/IP/EHL/TA/GSC
SILT L2-S1
w/wp
--- NOTE | 2024-11-12 11:10 | CM ---
Patient seen at bedside.
Has hemovac drain in place
[facility] to admit once discharged.
tt Dr. Vallejo regarding LSO brace
PLAN: home with [facility]
to transport
[2024-11-12 12:58] VITALS: BP 141/70
== END 2024-11-12 14:02 | disposition home health service (06) | DRG 451 ==
LOC: 2 SOUTH 12:20
PROVIDERS: Physician Assistant Medical; ADMITTING PHYSICIAN Orthopaedic Surgery; FAMILY PHYSICIAN Family Medicine
PROC: 01NB0ZZ Release Lumbar Nerve, Open Approach (ICD-10-PCS; 2024-11-10)
PROC: 0SG00K1 Fusion of Lumbar Vertebral Joint with Nonautologous Tissue Substitute, Posterior Approach, Posterior Column, Open Approach (ICD-10-PCS; 2024-11-10)
DX: M48.061 Spinal stenosis, lumbar region without neurogenic claudication (principal); M43.16 Spondylolisthesis, lumbar region; M47.26 Other spondylosis with radiculopathy, lumbar region; I12.9 Hypertensive chronic kidney disease with stage 1 through stage 4 chronic kidney disease, or unspecified chronic kidney disease; N18.32 Chronic kidney disease, stage 3b
CPT/HCPCS: 36415; 72100; 76000; 80048; 80053; 85014; 85018; 85027; 85610; 85730; 86850; 86900; 86901; 87070; 93005; 94640; 97116; 97162; 97166; 97530

== ENCOUNTER → 2025-01-18 07:23 | Outpatient (REF) | payer OTHER, SELFPAY | LOC: MRI 3T 07:23 | PROVIDERS: ATTENDING PHYSICIAN Orthopaedic Surgery; FAMILY PHYSICIAN Family Medicine | DX: M54.12 Radiculopathy, cervical region (principal) | CPT/HCPCS: 72141 ==

== ENCOUNTER 2025-03-16 06:01 | Inpatient (IN) | payer OTHER, SELFPAY ==
[2025-03-05 14:24] VITALS: BMI 31.4
[2025-03-05 14:27] LABS: Hematocrit 42.6 % (37.0-47.0); Hemoglobin 13.8 g/dL (12.0-16.0); Mean Corp Hgb Conc. 32.4 g/dL (33.0-37.0); Mean Corpuscular Hgb 27.7 pg (27.0-31.0); Mean Corpuscular Volume 85.4 fL (81.0-99.0); Mean Platelet Volume 10.8 fL (7.4-10.4); Platelet Count 292 10^3/uL (130-400); Red Blood Cell Count 4.99 10^6/uL (4.20-5.40); Red Cell Dist. Width 15.3 % (11.5-14.5); White Blood Cell Count 11.6 10^3/uL (4.8-10.8)
[2025-03-05 14:58] LABS: ALT (SGPT) 17 U/L (0-35); AST (SGOT) 26 U/L (14-36); Albumin 4.6 g/dl (3.5-5.0); Alkaline Phosphatase 82 U/L (38-126); Blood Urea Nitrogen 30 mg/dl (7-17); Calcium 10.1 mg/dl (8.4-10.2); Carbon Dioxide 28 mmol/L (22-30); Chloride 104 mmol/L (98-107); Estimated Creatinine Clearance 37 ml/min; Glucose 103 mg/dl (70-99); Potassium 4.7 mmol/L (3.5-5.1); Sodium 141 mmol/L (135-145); Total Bilirubin 0.9 mg/dl (0.2-1.3); Total Protein 7.7 g/dl (6.3-8.2); eGFR 44.36
[2025-03-16] VITALS (25 sets, daily range): BP systolic 20–148; BP diastolic 42–104; BMI 31.4
[2025-03-16] MEDS: LYRICA 150 MG PO (06:40)
[2025-03-16] MEDS: NORMOSOL-R/PLASMALYTE-A 1000 IV ×2 (06:40→13:10)
[2025-03-16] MEDS: CELEBREX 200 MG PO (06:40)
[2025-03-16] MEDS: TYLENOL 1000 MG PO ×2 (06:40→17:02)
--- NOTE | 2025-03-16 07:54 | W.PN.UPDATE ---
Update Note
Progress Note Update
C3-7 aarti Looney Cha 03/16/25
Hx non-occlusive RLE [id number] ambulation
CKD 3 GFR 44.36
--- NOTE | 2025-03-16 08:23 | W.DS.TRANS ---
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
-
Discharge Instructions:
Sleep Apnea Risk Low
Discharge Diagnosis/Procedures C3-7 aarti Looney Cha 03/16/25
Diet As tolerated
Activity No strenuous activity
Additional Activity frequent ambulation at home-SCD device when
sitting or sleeping
Driving Restrictions No driving
Bathing Restrictions OK to Shower
Instructions:
Stand-Alone Forms: [facility]/C Inst.
Changes to Home Medications: Yes
Discharge Medications:
DC Medications w/original date entered in [facility]
fluticasone fur. 200 mcg-umeclid 62.5 mcg-vilant 25 mcg inhalat.powder (Trelegy Ellipta) 1 inh inhalation DAILY Lung/Breathing Issues 11/06/24
paroxetine HCl 10 mg tablet (Paxil) 10 mg PO DAILY Mental Health/Anxiety 11/06/24
valsartan 80 mg tablet 80 mg PO DAILY Blood Pressure 11/06/24
Women's Daily Multivitamin 1 tab PO DAILY 03/09/25
acetaminophen 650 mg tablet,extended release 1,300 mg (2 x 650 mg) PO TID #0 tabs 03/16/25
dexamethasone 4 mg tablet 4 mg PO BID inflammation #6 tabs 03/16/25
docusate sodium 100 mg capsule (Colace) 100 mg PO BID #0 caps 03/16/25
gabapentin 300 mg capsule 300 mg PO HS sleep/pain #10 caps 03/16/25
magnesium hydroxide 400 mg/5 mL oral suspension (Milk of Magnesia) 30 ml PO HS PRN Constipation #1 mL 03/16/25
ondansetron 4 mg disintegrating tablet 4 mg PO Q6H PRN n/v #20 tabs 03/16/25
oxycodone 5 mg tablet 5 mg PO Q6H PRN 1 tab moderate pain, 2 tabs severe pain #30 tabs 03/16/25
sennosides 8.6 mg tablet (Senokot) 17.2 mg (2 x 8.6 mg) PO BID laxative #0 tabs 03/16/25
tizanidine 2 mg capsule 2 mg PO TID PRN muscle relaxer/sleep #20 caps 03/16/25
Home Medication Changes
dexamethasone 4 mg tablet 4 mg PO BID inflammation #6 tabs 03/16/25
docusate sodium 100 mg capsule (Colace) 100 mg PO BID #0 caps 03/16/25
gabapentin 300 mg capsule 300 mg PO HS sleep/pain #10 caps 03/16/25
magnesium hydroxide 400 mg/5 mL oral suspension (Milk of Magnesia) 30 ml PO HS PRN Constipation #1 mL 03/16/25
ondansetron 4 mg disintegrating tablet 4 mg PO Q6H PRN n/v #20 tabs 03/16/25
oxycodone 5 mg tablet 5 mg PO Q6H PRN 1 tab moderate pain, 2 tabs severe pain #30 tabs 03/16/25
sennosides 8.6 mg tablet (Senokot) 17.2 mg (2 x 8.6 mg) PO BID laxative #0 tabs 03/16/25
tizanidine 2 mg capsule 2 mg PO TID PRN muscle relaxer/sleep #20 caps 03/16/25
ASA 325mg daily--begin POD#5
Pending Results: No
--- NOTE | 2025-03-16 11:35 | OR.RPT ---
Operative Report
Operative Report
FILLER OPERATOR: ANNA MARIE Mota served as the assistant chief train dispatcher for this procedure, as no qualified resident or fellow was able to be identified
PREOPERATIVE DIAGNOSES:
1. Cervical spondylotic myeloradiculopathy.
2. Herniated nucleus pulposus and degenerative disc disease C3-4, C4-5.
3. Cervical Spinal Stenosis
POSTOPERATIVE DIAGNOSES:
1. Cervical spondylotic myelopathy.
2. Herniated nucleus pulposus and degenerative disc disease C3-4, C5-6.
3. Cervical Spinal Stenosis
NAME OF OPERATION:
1. Posterior spinal decompression consisting of laminectomy C3 and laminaplasty C4-6 and left C3-4 laminoforaminotomy.
2. Laminaplasty plating C4-6 (Globus Canopy)
ANESTHESIA: General endotracheal.
ESTIMATED BLOOD LOSS: 100 mL.
SPECIMENS: None.
DISPOSITION: Stable, extubated to PACU.
INDICATIONS: This patient is a 84 year old female with a chief complaint of bilateral (LEFT worse than RIGHT) shoulder and radiating arm pain into the first, second, and third fingers. Pain is described as a tingling electrical sensation. Patient
rates the pain 8. Pain increases with Sleeping and driving. Pain decreases with changing position frequently and standing. The patient also admits to progressive worsening gait and standing balance and denies bowel/bladder incontinence. Her imaging
demonstrated severe cervical spondylosis with multilevel cervical spinal stenosis, notably the C3-4 and C4-5 and C5-6 levels. Since the patient had subjective, objective and corroborative imaging evidence of cervical spondylosis presenting with
myelopathy and radiculopathy and an episode of transient quadriplegia, surgical treatment was offered. The patient understood the benefits, alternatives and risks of the procedure, with risks including, but not limited to, risk of anesthesia,
infection, nerve damage, blood vessel damage, dural tear, blindness, , failure of instrumentation, need for further surgery, adjacent level problems. He elected to proceed after undergoing preoperative medical clearanc.
DESCRIPTION OF PROCEDURE: The patient was identified in the preoperative holding area, the site of surgery and consent verified with the patient. @CAPHE@ was then brought to the Operating Room by the Anesthesia and Orthopedic services. General
anesthesia was administered. The patient was intubated without difficulty and LIOR and SCD stockings placed and a sterilely inserted Poe catheter. Cam head pins were then placed in position and he was positioned prone onto a regular table, gel
pad padding his bony prominences, abdomen hanging free. His neck was prepped and draped in the usual sterile standard fashion. Preoperative radiograph demonstrating slight lordotic alignment of his cervical spine; 2 grams of IV Ancef given prior to
surgical start and a hard stop surgical timeout performed before incision.
A midline skin incision was then made over the presumed C3 to C6 spinous processes down through the skin with a knife, Bovie cautery down through the fascia. Deep dissection was then taken with subperiosteal dissection of the bilateral hemilamina of
C3 to C6. This was confirmed with an intraoperative fluoroscopic image. Once this was confirmed, further lateral dissection consisted of exposing completely the lateral masses on the right from C3 down to C6, with care taken to preserve the facet
capsules of proximal and distal junctional levels. Deep self-retaining retractor was placed and excellent hemostasis achieved.
Next, decompression was performed at the spinal laminar junction at each level, a 3-mm neural emmanuel was used to emmanuel through the outer cortex and inner cortex of the lamina down to the ligamentum flavum distally at each level and through the
remaining superior
aspect of the lamina in each level on the left side. On the right side, the inner cortical layer was left intact to serve as the hinge side. A curved micro- angled curette, bipolar cautery as well as Loyal forceps were used to tease the
ligamentum flavum from the undersurface of the lamina as well as the hypertrophied facet capsular tissue to hinge open the C4-6 lamina in one piece. At C3, the doming laminectomy was performed with further passes of a kerrison rongeur and the spinal
cord was noted to expand in size with the adequate decompression.
Next, a lamina foraminotomy was performed at the left C3-4 level, a emmanuel taking down the medial half of the inferior facet of C3 and the superior facet of C4. A micro-angled curette and one Kerrison was then used to complete the foraminotomy. The
traversing C4 nerve root was excellently visualized and noted to be free and mobile following the decompression.
Instrumentation was then completed with preparation of three lateral mass plates on C4-6 to keep the laminaplasty open. 4mm and 6mm and 8mm screws were placed into the lamina and left lateral masses. Final AP and lateral images demonstrated adequate
positioning of all instrumentation and alignment of the spine.
A medium Hemovac drain was then placed, the wound closed in a sequential fashion with 0 Vicryl, 2-0 Vicryl and 3-0 Monocryl for the skin. A dry sterile dressing applied. A soft cervical collar was also applied and he was flipped back to supine to a
hospital table, extubated without difficulty and @HE@ had purposeful movement of all four extremities. She was transferred in stable disposition to the PACU.
ATTESTATION: I attest I was present for and performed all flores and critical aspects of the procedure.
--- NOTE | 2025-03-16 14:16 | SUR.PHASEI ---
anesthesia notified of low heart rate, BP stable, initially slow to respond, now easily arousable, no pain, just tired, right arm stronger than left, no pain in left arm as was preop.
[2025-03-16] MEDS: PAXIL PO (15:33)
[2025-03-16] MEDS: ULTRAM PO (15:33)
[2025-03-16] MEDS: METHOCARBAMOL PO (15:34)
[2025-03-16] MEDS: ANCEF 5 IV ×2 (17:01→23:45)
[2025-03-16] MEDS: METHOCARBAMOL 1500 MG PO ×2 (17:02→21:48)
[2025-03-16] MEDS: SYMBICORT 160/4.5 MCG INHALER 2 PUFF INH (20:05)
[2025-03-16] MEDS: SENOKOT 17.2 MG PO (20:26)
[2025-03-16] MEDS: COLACE 100 MG PO (20:26)
[2025-03-16] MEDS: LYRICA 75 MG PO (20:26)
[2025-03-16] MEDS: ULTRAM 50 MG PO (21:48)
[2025-03-16] MEDS: NORMOSOL-R/PLASMALYTE-A IV (23:22)
[2025-03-16] MEDS: ROXICODONE 5 MG PO (23:44)
[2025-03-17] VITALS (9 sets, daily range): BP systolic 99–165; BP diastolic 49–98; PULSE 67–93; O2SAT 91
[2025-03-17] MEDS: TYLENOL 1000 MG PO ×4 (01:07→17:18)
--- NOTE | 2025-03-17 03:02 | PTCARENOTE ---
pt has hemovac in place , the order does not say if it should be compressed and it was not compressed when I rec'vd this pt, Dr Serrano made aware, nno.
[2025-03-17] MEDS: NORMOSOL-R/PLASMALYTE-A 1000 IV (04:33)
[2025-03-17] MEDS: ROXICODONE 5 MG PO ×3 (05:56→21:45)
[2025-03-17 07:14] LABS: Blood Urea Nitrogen 38 mg/dl (7-17); Calcium 9.3 mg/dl (8.4-10.2); Carbon Dioxide 25 mmol/L (22-30); Chloride 104 mmol/L (98-107); Estimated Creatinine Clearance 37 ml/min; Glucose 114 mg/dl (70-99); Potassium 4.5 mmol/L (3.5-5.1); Sodium 141 mmol/L (135-145); eGFR 44.36
[2025-03-17] MEDS: SYMBICORT 160/4.5 MCG INHALER 2 PUFF INH ×2 (07:23→20:16)
[2025-03-17] MEDS: SPIRIVA RESPIMAT 2.5 MCG 2 PUFF INH (07:23)
[2025-03-17] MEDS: SENOKOT 17.2 MG PO ×2 (07:59→19:41)
[2025-03-17] MEDS: COLACE 100 MG PO ×2 (07:59→19:41)
[2025-03-17] MEDS: LYRICA 75 MG PO (08:00)
[2025-03-17] MEDS: PAXIL 10 MG PO (08:00)
[2025-03-17] MEDS: METHOCARBAMOL 1500 MG PO (08:00)
--- NOTE | 2025-03-17 09:32 | W.PN.ORTHO ---
Addendum entered and electronically signed by Naomi Augustin PA-C 03/17/25 13:15:
We will add ASA 325mg daily to begin on POD#5 for DVT ppx
Original Note:
Today's Communication / Plan
-
drain output 100 overnight-surgeon advises pull drain this afternoon and d/c
Assessment
.
Distal Motor Intact: Yes
Dressing:
Clean, dry and intact.
Assessment:
Hx non-occlusive RLE rnxahuyb-dep-exnszgmx ambulation
CKD 3 GFR 44.36-renalfunction at baseline non today's labs
Plan
.
Surgery / Date: C3-7 lamramona Looney Cha 03/16/25
Activity:
Out of bed.
PT/OT
Discharge Plan: Home
Subjective
.
.:
Patient resting comfortably.
Vital Signs and Labs
.
Vital Signs and Labs:
Lab Results
03/17/25 05:59
03/17/25 05:59
Temp Pulse Resp BP Pulse Ox
98.1 F 86 16 129/65 90
03/17/25 07:35 03/17/25 08:08 03/17/25 07:35 03/17/25 08:08 03/17/25 07:35
Physical Exam
-
HEENT: No pallor, cyanosis, or jaundice. Throat clear.
NECK: Supple. No JVD.
RESPIRATORY: Lungs clear to auscultation.
CVS: S1, S2 normal. RRR.� No murmur, rub or gallop.
ABDOMEN: Soft, non-tender. No distension. BS+/normal.
EXTREMITIES: strength equal, no calf pain with palpation
EDITOR INDEX: AOx3. No focal deficits. plastic sheeting cutter grossly intact
--- NOTE | 2025-03-17 10:25 | CM ---
Addendum entered by Gwendolyn Odell RN 03/17/25 10:57:
JACK reviewed medical records. Patient lives independently with . Patient does have a history of home care. Patient is refusing home care at this time. Cm will remain available as needed.
PLAN: home no needs.
Original Note:
Jack reviewed medical records. Patient is pending PT evaluation.
--- NOTE | 2025-03-17 13:15 | W.PN.UPDATE ---
Update Note
Progress Note Update
O2 SAT 95% when standing, lungs fully expanded s/p incentive spirometry
Mild orthostasis-Midodrine and IVF bolus-recheck prior to d/c and hold d/c if does not meet parameter or symptomatic
drain d/c
[2025-03-17] MEDS: ProAmatine 5 MG PO (13:26)
[2025-03-17] MEDS: NORMOSOL-R/PLASMALYTE-A 500 IV (13:32)
[2025-03-18] VITALS (7 sets, daily range): BP systolic 129–171; BP diastolic 60–86
[2025-03-18 00:37] LABS: Hemoglobin 11.8 g/dL (12.0-16.0); Mean Corp Hgb Conc. 32.8 g/dL (33.0-37.0); Mean Corpuscular Hgb 28.1 pg (27.0-31.0); Mean Corpuscular Volume 85.7 fL (81.0-99.0); Mean Platelet Volume 10.8 fL (7.4-10.4); Platelet Count 221 10^3/uL (130-400); Red Cell Dist. Width 15.8 % (11.5-14.5); White Blood Cell Count 14.2 10^3/uL (4.8-10.8)
[2025-03-18] MEDS: TYLENOL PO (00:48)
[2025-03-18 01:17] LABS: Blood Urea Nitrogen 32 mg/dl (7-17); Calcium 9.3 mg/dl (8.4-10.2); Carbon Dioxide 29 mmol/L (22-30); Chloride 104 mmol/L (98-107); Estimated Creatinine Clearance 40 ml/min; Glucose 132 mg/dl (70-99); Magnesium 1.7 mg/dl (1.6-2.3); Potassium 4.4 mmol/L (3.5-5.1); Sodium 139 mmol/L (135-145); eGFR 49.24
--- NOTE | 2025-03-18 03:55 | W.PN.UPDATE ---
Addendum entered and electronically signed by STEPHON Brownlee 03/18/25 06:13:
RN reports patient desat to spo2% 79% as patient walked to the Room without oxygen. Once oxygen was placed oxygen status came up to 93% 2l. will check covid, flu, chest Xray.
Original Note:
Update Note
Progress Note Update
RN reported patient HR 150's also oxygen dropped to 88% RA. placed on 2l via NC 94-96%, 98.3, 162/80, HR 90's-110 RR 18. labs ordered. WBC elevated. likely body's stress response, will order CBC with differential for AM. May need infectious work up
UA, wound drainage, blood culture.
[2025-03-18] MEDS: ROXICODONE 5 MG PO (04:33)
[2025-03-18] MEDS: TYLENOL 1000 MG PO ×4 (05:19→22:47)
--- NOTE | 2025-03-18 06:07 | W.PN.UPDATE ---
Update Note
Progress Note Update
RN reported patient HR irregular 130's- 170's. EKG noted. Patient asymptomatic. afebrile BP 140's/69 98% RA . HR irregular rhythm, lungs clear, Denies any chest pain, any shortness of breath, Metoprolol 5 mg IV given, labs ordered.
85 min total patient stayed in Aflutter and converted to NSR.
--- NOTE | 2025-03-18 07:15 | PTCARENOTE ---
2112 Danita Elizabeth dx lami C3-7 when ambulating to rest room om way back her SATs dropped with no 02 on and her b/p 124/60 hr 79 she had a near syncopal episode once I applied the 02 she was then able to walk back to bed and b/p remained
120/60..orders xcr labs covid flu ANNA MARIE Augustin made aware
[2025-03-18 07:29] LABS: COVID-19 Antigen Negative (Negative)
[2025-03-18 07:31] LABS: % Basophils 0.7 % (0-2); % Eosinophils 1.1 % (0-6); % Immature Granulocytes 0.5 % (0-0.5); % Lymphocytes 13.6 % (20.5-51.1); % Monocytes 13.7 % (1.7-9.3); % Neutrophils 70.4 % (42.2-75.2); Absolute Basophils 0.1 10^3/uL (0-0.2); Absolute Eosinophils 0.2 10^3/uL (0-0.7); Absolute Immature Granulocytes 0.1 10^3/uL (0-0.05); Absolute Lymphocytes 1.9 10^3/uL (1.2-3.4); Absolute Monocytes 1.9 10^3/uL (0.1-0.6); Absolute Neutrophils 9.6 10^3/uL (1.4-6.5); Hematocrit 40.1 % (37.0-47.0); Hemoglobin 12.9 g/dL (12.0-16.0); Mean Corp Hgb Conc. 32.2 g/dL (33.0-37.0); Mean Corpuscular Volume 87.2 fL (81.0-99.0); Mean Platelet Volume 11.3 fL (7.4-10.4); Nucleated Red Blood Cells % 0 %; Platelet Count 237 10^3/uL (130-400); Red Cell Dist. Width 16.1 % (11.5-14.5); White Blood Cell Count 13.7 10^3/uL (4.8-10.8)
[2025-03-18] MEDS: SENOKOT 17.2 MG PO ×2 (07:34→20:11)
[2025-03-18] MEDS: PAXIL 10 MG PO (07:34)
[2025-03-18] MEDS: COLACE 100 MG PO ×2 (07:34→20:11)
[2025-03-18] MEDS: DECADRON 4 MG IV (07:35)
[2025-03-18] MEDS: SYMBICORT 160/4.5 MCG INHALER 2 PUFF INH ×2 (07:53→20:19)
[2025-03-18] MEDS: SPIRIVA RESPIMAT 2.5 MCG 2 PUFF INH (07:53)
[2025-03-18 09:29] LABS: D-Dimer 1.65 ug/mlFEU (0.00-0.50)
--- NOTE | 2025-03-18 09:36 | CM ---
Jack spoke with patient and she was resistant to home care as she believed the nurse was rude to her. She would be agreeable to VN as long as the same nurse was not assigned.
JACK updated [facility] admissions recruiter nurse.
--- NOTE | 2025-03-18 10:20 | VNURNOTE ---
Home Health Liaison met with patient at bedside to discuss [facility] nurse/therapy, visits, schedule and homebound status. Patient is agreeable and understands that visits at home will be 2-3 x per week to assess and teach medical management. She stated
she would be agreeable to any VN who saw her. Patient is aware that [facility] will contact them for start of care in 1-2 days after discharge from .
[facility] referral completed in [facility].
[2025-03-18] MEDS: ULTRAM 25 MG PO (11:38)
--- NOTE | 2025-03-18 14:07 | W.PN.SP ---
Today's Communication / Plan
-
None
Assessment / Plan
-
POD#2 s/p Cervical laminaplasty C3-7
Patient went for VQ scan this morning and pending normal result stable for discharge to home with services today.
Activity ad mackenzie except for lifting less than 5lbs with arms for 3 weeks.
Collar as needed for comfort only
Will follow up in the office in 3 weeks.
Subjective / Objective
Subjective Data
Patient with episode of oxygen desaturation when getting up to go to bathroom overnight. Incisional pain about the neck and improvement in bilateral upper extremity symptoms.
No SOB, CP. Vitals stable throughout the day
Objective Data
Vital Signs
Temp Pulse Resp BP Pulse Ox
98.3 F 89 16 141/86 96
03/18/25 07:50 03/18/25 09:04 03/18/25 07:57 03/18/25 09:04 03/18/25 07:57
Intake and Output
03/17/25 03/18/25 03/19/25
06:59 06:59 06:59
Intake Total 1520 / 1520 712 / 712
Output Total 120 / 120
Balance 1400 / 1400 712 / 712
Intake:
Oral fluids 120 / 120 712 / 712
IV fluids (Total) 1400 / 1400 0 / 0
normosol 200 / 200
IV piggybacks 0 / 0
Output:
Drain Output (Total) 120 / 120
Neck 20 / 20
Neck Hemovac 100 / 100
Urine, Voided 0 / 0
Other:
Number of approximated MODERATE 2 2
amounts of urine
Number of approximated LARGE 1
amounts of urine
Lab Data
03/18/25 06:21
03/18/25 00:24
Physical Exam
-
Clean dry posterior dressing
03/30/ in bilateral D/Bi/Tri/WE/WF/FF/IO
w/wp
--- NOTE | 2025-03-18 15:23 | CM ---
CM reviewed medical records.
PLAN: home with [facility].
--- NOTE | 2025-03-18 16:31 | CON.CAR ---
Addendum entered and electronically signed by Ramsey Benton MD 03/18/25 16:54:
Patient seen and examined
Agree with LEIGHANN Concepcion note and assessment
Agree with LEIGHANN Menard plan
Reviewed available telemetry demonstrating short runs of atrial fibrillation
On admission and postoperatively she had sinus rates in the high 40s and low 50s but now is in the 70s to 80s and is tolerating current medications
Her spine is healing well postsurgery and overall feels well
No prior history of atrial fibrillation
����Physical Exam
���������������������General:��no apparent distress, not acutely ill
���������������������������Neck:��supple. no meningeal signs. normal psoterior pharynx
������������������������
���������������������������Heart:��s1/s2 regular rate and rhythm, no murmur. equal radial pulses.
��������������������������Lungs: ��no acute respiratory distress. clear bilaterally
����������������������Abdomen:�normal bowel sounds. not tender. no CVAT
��������������������������Neuro:��alert and oriented. no focal neurological deficits
������������������������������Skin: ��no rash
�����������������������Psychiatric:�well kept. interactive and cooperative
�����������������������Extremities:��no edema. no calf tenderness. negative homans. good distal pulses
Assessment:
Spinal stenosis s/p cervical laminaplasty C3-C7 03/16/25
Brief PAF, new diagnosis, asymptomatic
PACs
Hypertension
CKD stage IIIb
Osteoarthritis
Obesity
History of remote DVT, provoked from /post /
Remote former smoker
ECHO 07/01/2021: EF 60 to 65%, no regional wall motion abnormalities, no significant valvular disease
Plan:
- Patient continues to recover status post cervical laminoplasty C3-C7 on 03/16/2025. Continue postoperative care, pain management, PT/OT
- She is noted on review of telemetry today to have evidence of brief self-limiting runs of what appears to be atrial fibrillation which are asymptomatic
- reviewed atrial fibrillation and associated risk of CVA with patient and at bedside.
- We have stopped outpatient valsartan in favor of Toprol 25 mg daily and will maintain telemetry overnight
- Check echo, last from 2020 as above
- Check TSH
- [id number] score of 4 for age, female, hypertension. Would consider initiation of anticoagulation with Eliquis 5 mg twice daily when okay from surgery standpoint, likely postop day 5 and patient and are amenable
- Will arrange for outpatient cardiac follow-up. consider for OP Bardy monitor to assess for arrhythmia burden
- Discussed with nursing.
Original Note:
Consultation
Consultation Request
Date/Time Consultation Performed: 03/18/25
Requesting Provider: Naomi Augustin PA-C
Performing Provider: Rebecca Concepcion PA-C for Dr. Benton
Reason for Consultation: afib
Medical History
-
Chief Complaint: cervical stenosis
History of Present Illness:
Patient is an 84-year-old female with past medical history of hypertension, CKD stage IIIb, osteoarthritis, obesity, spinal stenosis who presented to [facility] for cervical laminoplasty C3-C7 03/16/2025. She reports she has been having
pain, however has overall been doing well postoperatively. She thought she was being discharged today, however then was told given her heart rates have been intermittently elevated, that plan was for her to stay overnight tonight with cardiology
consultation. She appears to be mostly in sinus rhythm with PACs, and brief runs of what appears to be atrial fibrillation. Patient is asymptomatic without chest pain, shortness of breath, palpitations. She denies history of arrhythmia issues in
the past. She denies thyroid issues.
PMH:
Hypertension
CKD stage IIIb
Spinal stenosis
Osteoarthritis
Obesity
History of remote DVT, provoked from /post /
Remote former smoker
Past Medical History
Past Medical History: Other (in HPI)
Social History
Tobacco: Former Smoker (remote)
Personal:
Living: With Family
Allergies / Home Medications
Allergy/AdvReac Type Severity Reaction Status Date / Time
No Known Allergies Allergy Verified 03/16/25 06:25
�Medication �Instructions �Recorded �Confirmed �Type
fluticasone fur. 200 mcg-umeclid 1 inh inhalation DAILY 11/06/24 03/16/25 History
62.5 mcg-vilant 25 mcg Lung/Breathing Issues
inhalat.powder (Trelegy Ellipta)
paroxetine HCl 10 mg tablet (Paxil) 10 mg PO DAILY Mental 11/06/24 03/16/25 History
Health/Anxiety
valsartan 80 mg tablet 80 mg PO DAILY Blood Pressure 11/06/24 03/16/25 History
Women's Daily Multivitamin 1 tab PO DAILY 03/09/25 03/16/25 History
acetaminophen 650 mg 1,300 mg (2 x 650 mg) PO TID #0 03/16/25 03/16/25 Rx
tablet,extended release tabs
dexamethasone 4 mg tablet 4 mg PO BID inflammation #6 tabs 03/16/25 Rx
docusate sodium 100 mg capsule 100 mg PO BID #0 caps 03/16/25 03/16/25 Rx
(Colace)
gabapentin 300 mg capsule 300 mg PO HS sleep/pain #10 caps 03/16/25 Rx
magnesium hydroxide 400 mg/5 mL 30 ml PO HS PRN Constipation #1 mL 03/16/25 Rx
oral suspension (Milk of Magnesia)
ondansetron 4 mg disintegrating 4 mg PO Q6H PRN n/v #20 tabs 03/16/25 Rx
tablet
oxycodone 5 mg tablet 5 mg PO Q6H PRN 1 tab moderate 03/16/25 Rx
pain, 2 tabs severe pain #30 tabs
sennosides 8.6 mg tablet (Senokot) 17.2 mg (2 x 8.6 mg) PO BID 03/16/25 03/16/25 Rx
laxative #0 tabs
tizanidine 2 mg capsule 2 mg PO TID PRN muscle 03/16/25 Rx
relaxer/sleep #20 caps
aspirin 325 mg tablet 325 mg PO DAILY blood clot 03/17/25 Rx
prevention #1 tab
Review of Systems
-
History Source: Patient and Family
All other systems: Negative unless noted
Physical Exam
Vital Signs
Temp Pulse Resp BP Pulse Ox
98.1 F 101 16 129/76 92
03/18/25 15:45 03/18/25 15:45 03/18/25 15:45 03/18/25 15:45 03/18/25 15:45
Lab Results
03/18/25 06:21
03/18/25 00:24
Physical Exam
General: No Apparent Distress, Comfortable and Other (sitting in chair)
HEENT: Normocephalic, Anicteric and Moist Mucous Membranes
Respiratory: Clear and Non Labored Respirations
Cardiac: S1/S2 and Regular Rhythm
GI: Soft, Non Tender, Non Distended and Normal Bowel Sounds
Musculoskeletal: No Clubbing, No Cyanosis and No Edema
Skin: Warm, Dry and Other (posterior neck dressing c/d/i)
Neuro: AO x 3
Impression / Plan
-
Primary Cement Paver: none prior to admission
Assessment:
Spinal stenosis s/p cervical laminaplasty C3-C7 03/16/25
Brief PAF, new diagnosis, asymptomatic
PACs
Hypertension
CKD stage IIIb
Osteoarthritis
Obesity
History of remote DVT, provoked from /post /
Remote former smoker
ECHO 07/01/2021: EF 60 to 65%, no regional wall motion abnormalities, no significant valvular disease
Plan:
- Patient continues to recover status post cervical laminoplasty C3-C7 on 03/16/2025. Continue postoperative care, pain management, PT/OT
- She is noted on review of telemetry today to have evidence of brief self-limiting runs of what appears to be atrial fibrillation. She is asymptomatic.
- reviewed atrial fibrillation and associated risk of CVA with patient and at bedside.
- We have stopped outpatient valsartan in favor of Toprol 25 mg daily
- Check echo, last from 2020 as above
- Check TSH
- [id number] score of 4 for age, female, hypertension. Would consider initiation of anticoagulation with Eliquis 5 mg twice daily when okay from surgery standpoint, likely postop day 5.
- Will arrange for outpatient cardiac follow-up. consider for OP Bardy monitor to assess for arrhythmia burden
- Discussed with nursing.
Data Reviewed
-
EKG: Tracing Personally Visualized and interpreted
Medical Tests (Nuc Med, Echo etc): Report Reviewed by me
Labs: Labs Reviewed by me
Old Records: Reviewed
[2025-03-18] MEDS: TOPROL XL 25 MG PO (16:48)
[2025-03-18 17:14] LABS: TSH Reflex To Free T4 1.05 uIU/ml (0.47-4.68)
[2025-03-18] MEDS: LASIX 20 MG IV (18:11)
--- NOTE | 2025-03-18 18:19 | W.PN.ORTHO ---
Today's Communication / Plan
-
d/c when stable
Assessment
.
Distal Motor Intact: Yes
Dressing:
Clean, dry and intact.
Assessment:
Xnwe-TAK-Nttwap d/c, BB added-cardiology consulted
Hypoxia POD#1-due to deconditioning, anesthesia/opioid, COPD, suspected MICHEL, body habitus--O2 SAT 95% when standing, lungs fully expanded s/p incentive spirometry--hx clot-VQ scan low probability-decreased breath sounds at bases s/p IVF bolus-Lasix
20mg IV x 1 dose and check BNP
Mild orthostasis-Midodrine and IVF bolus-minimize opioids
Hx non-occlusive RLE gyllsiou-jwt-dzamyqse ambulation-blood clot prevention on POD#5
CKD 3 GFR 44.36-no nephrotoxic agents
Plan
.
Surgery / Date: C3-7 aarti Looney Cha 03/16/25
Activity:
Out of bed.
PT/OT
Subjective
.
.:
Patient resting comfortably.
Vital Signs and Labs
.
Vital Signs and Labs:
Lab Results
03/18/25 06:21
03/18/25 00:24
Temp Pulse Resp BP Pulse Ox
100.2 F 91 16 166/86 91
03/18/25 18:03 03/18/25 18:11 03/18/25 18:03 03/18/25 18:11 03/18/25 18:03
Non-invasive Hgb result: 12.5
Physical Exam
-
HEENT: No pallor, cyanosis, or jaundice. Throat clear.
NECK: Supple. No JVD.
RESPIRATORY: diminished at bases.
CVS: S1, S2 normal. RRR.� No murmur, rub or gallop.
ABDOMEN: Soft, non-tender. No distension. BS+/normal.
EXTREMITIES: strength equal, no calf pain with palpation
SHAKER OPERATOR: AOx3. No focal deficits. sack lifter grossly intact
[2025-03-18 18:35] LABS: NT-proBNP 421 pg/ml
[2025-03-18] MEDS: ULTRAM 50 MG PO (20:10)
[2025-03-18] MEDS: LOPRESSOR 5 MG IV (22:00)
[2025-03-18] MEDS: MELATONIN 5 MG PO (22:47)
--- NOTE | 2025-03-18 23:00 | PTCARENOTE ---
Pt. walking to bathroom with tech @2125, alarming as afib, HR 130-170s, pt. asymptomatic. House OXYGEN THERAPY TECHNICIAN made aware, came to see pt. at bedside, EKG obtained showing afib, stat orders for metoprolol IV obtained and administered to pt., VSS. Pt. eventually
converted to NSR @2252.
[2025-03-19] VITALS (11 sets, daily range): BP systolic 72–152; BP diastolic 44–81; PULSE 74–87; O2SAT 93
--- NOTE | 2025-03-19 00:15 | PTCARENOTE ---
Pt. walking back to bed from bathroom with assist from PCT when pt. went to turn and started leaning back into PCT. PCT gently lowered pt. to sit on PCT's feet. Pt. did not hit head at any point. Per PCT, pt. was alert and talking during event. Pt.
assisted to chair and pivoted to bed. Per pt. she is unsure what happened but went to turn and 'just didn't'. Denies blacking out, denies loss of consciousness, denies dizziness, denies lightheadedness. Vital signs obtained and WNL. House BILLING TYPIST made
aware and saw pt. at bedside.
[2025-03-19 00:40] LABS: Blood Urea Nitrogen 27 mg/dl (7-17); Carbon Dioxide 30 mmol/L (22-30); Chloride 100 mmol/L (98-107); Estimated Creatinine Clearance 44 ml/min; Glucose 147 mg/dl (70-99); Magnesium 1.6 mg/dl (1.6-2.3); Potassium 4.1 mmol/L (3.5-5.1); Sodium 139 mmol/L (135-145); eGFR 55.21
[2025-03-19 00:46] LABS: Mean Corp Hgb Conc. 32.5 g/dL (33.0-37.0); Mean Corpuscular Hgb 27.7 pg (27.0-31.0); Mean Corpuscular Volume 85.3 fL (81.0-99.0); Mean Platelet Volume 10.8 fL (7.4-10.4); Platelet Count 255 10^3/uL (130-400); Red Blood Cell Count 4.69 10^6/uL (4.20-5.40); Red Cell Dist. Width 15.9 % (11.5-14.5); White Blood Cell Count 19.9 10^3/uL (4.8-10.8)
[2025-03-19 00:52] LABS: Troponin I < 0.012 ng/ml
--- NOTE | 2025-03-19 03:30 | DOWNTIME ---
There was a Smarter Agent Mobile Client Tanyard Worker Downtime on 03/19/2025 from 0200 to 03/19/2024 at 0318 . Downtime documentation of patient's care, including medication administrations, has been reconciled in the electronic record per guidelines. Refer to the
patient's paper chart under the miscellaneous tab to see printed paper medication records and downtime forms.
--- NOTE | 2025-03-19 07:00 | W.PN.UPDATE ---
Update Note
Progress Note Update
RN reported patient HR irregular 130's- 170's. EKG noted. Patient asymptomatic. afebrile BP 140's/69 98% RA . Denies any chest pain, any shortness of breath, Meoprolol 5 mg IV given, labs ordered.
85 min total patient stayed in Aflutter and converted to NSR
WBC elevated blood culture ordered
--- NOTE | 2025-03-19 08:18 | CM ---
Addendum entered by Gwendolyn Odell RN 03/19/25 08:36:
CM spoke with unit nurse web site manager and bedside RN. Patient has been increasingly confused and unable to follow directions from nursing staff. CM will await further PT evaluations.
PLAN: Pending PT evaluation, potential SNF.
Original Note:
Cm reviewed medical records. Patient remains acutely ill at this time. CM will continue to follow.
PLAN: Home with VN, pending further PT evaluation.
[2025-03-19] MEDS: SYMBICORT 160/4.5 MCG INHALER 2 PUFF INH ×2 (08:44→19:29)
[2025-03-19] MEDS: SPIRIVA RESPIMAT 2.5 MCG 2 PUFF INH (08:44)
[2025-03-19] MEDS: SENOKOT 17.2 MG PO ×2 (09:05→21:38)
[2025-03-19] MEDS: COLACE 100 MG PO ×2 (09:05→21:38)
[2025-03-19] MEDS: PAXIL 10 MG PO (09:05)
[2025-03-19] MEDS: TYLENOL PO (09:10)
[2025-03-19] MEDS: TOPROL XL 25 MG PO (09:11)
[2025-03-19] MEDS: ULTRAM 50 MG PO (09:13)
--- NOTE | 2025-03-19 09:15 | PTCARENOTE ---
Addendum entered by Cecilia Rowell RN 03/19/25 12:16:
Patient's ortho VS while working with therapy: supine: 105/57, 86, sittin/57, 86, standin/44, 86. Per therapy, she could hardly stand, closing her eyes, stating she was tired. ANNA MARIE Boston, updated.
Original Note:
This nurse was assisting patient in ambulating to bathroom with rolling walker. Patient did well walking to the bathroom and washing hands. When directing patient to turn and walk back into her room, she continued to push her walker against the
sink, looking forward with a blank expression. This RN then called for help. 2 other RNs and 2 CNAs entered the room, and patient then ambulated back to the chair. She stated she did not feel dizzy and appeared asymptomatic at the time. VS while
sitting were 97.9, 74, 16, 130/64, 94% on 4L. O2 was sitting 88-92% on 2L, so increased O2 to 4L. ANNA MARIE Boston, notified of situation, this nurse stated patient does not appear safe at this time to go home with VN. Stated we will see how she
does with therapy and we will make sure rate is controlled, with new afib. Therapy notified of situation. Orthostatic VS obtained after event: sittin/81, 87. Standin/60, 86. Patient placed back in bed, on bed alarm, for echocardiogram at
this time.
--- NOTE | 2025-03-19 11:01 | W.PN.CARDCBS ---
Addendum entered and electronically signed by Rebecca Concepcion PA-C 03/19/25 15:52:
d/w ortho PA. Patient was reportedly with hypotension, presyncope, and positive orthostatic vital signs while working with therapy this afternoon. She has not had any recurrence of A-fib on review of telemetry. Toprol was increased this morning,
as per patient in setting of pain she went into A-fib and her blood pressure was reportedly elevated at 190/80 last evening. will reduce toprol dose back to 25mg daily given orthostasis. she had been given dose of IV lasix 20mg yesterday. proBNP was
421. due to hypotension today she was then given IVF. follow volume status and BP trends. agree with observation overnight.
Addendum entered and electronically signed by Raffaele Aguilar MD 03/19/25 15:24:
I saw and examined the patient.
The Cigarette Making Examiner's note was reviewed and I agree with the note.
Comment: Briefly, 84-year-old woman presenting for cervical laminectomy and postoperatively developed atrial fibrillation which is a new diagnosis for her
Currently maintaining sinus rhythm on my review of telemetry
Echo with normal LV function and no high-grade valve disease
Continue metoprolol for rate control
Recommend anticoagulation with Eliquis when safe from a surgical standpoint, tentatively postop day 5
Outpatient follow-up arranged
We will sign off, please recall as needed
Original Note:
Today's Communication / Plan
-
Increase Toprol to 25 mg twice daily
Eliquis 5 mg twice daily when okay per surgery
Echo pending
Outpatient cardiac follow-up arranged
Will plan for outpatient Bardy monitor to assess for A-fib burden
Impression / Plan
-
Primary Junior Buyer: none prior to admission
Assessment:
Spinal stenosis s/p cervical laminaplasty C3-C7 03/16/25
Brief PAF, new diagnosis, asymptomatic
PACs
Hypertension
CKD stage IIIb
Osteoarthritis
Obesity
History of remote DVT, provoked from /post /
Remote former smoker
ECHO 07/01/2021: EF 60 to 65%, no regional wall motion abnormalities, no significant valvular disease
Plan:
- She had approximately 1 hour of atrial fibrillation last evening on review of telemetry. Has been in sinus rhythm since that time. She reports she was in some pain at the time that she reportedly was in A-fib
- Have increased Toprol dose from 25 mg daily to twice daily. Outpatient valsartan discontinued
- Echo pending
- Troponin negative x 1
- TSH within normal limits
- Would initiate anticoagulation with Eliquis 5 mg twice daily when okay from surgical standpoint, likely postop day #5
- Will arrange for outpatient cardiac follow-up. consider for OP Bardy monitor to assess for arrhythmia burden. If remains with evidence of atrial fibrillation on outpatient monitoring, would consider for antiarrhythmic drug therapy
- Discussed with nursing.
Progress Note - Junior Buyer
Subjective
Date of Service: March 19, 2025
Feeling well. Eager for discharge. No palpitations
Objective
Labs:
03/19/25 00:17
03/19/25 00:17
Labs
Hgb 13.0 g/dL (12.0-16.0) 03/19/25 00:17
Hct 40.0 % (37.0-47.0) 03/19/25 00:17
Plt Count 255 10^3/uL (130-400) 03/19/25 00:17
Sodium 139 mmol/L (135-145) 03/19/25 00:17
Potassium 4.1 mmol/L (3.5-5.1) 03/19/25 00:17
BUN 27 mg/dl (7-17) H 03/19/25 00:17
Creatinine 1.0 mg/dL (0.6-1.0) 03/19/25 00:17
Glucose 147 mg/dl (70-99) H 03/19/25 00:17
Troponins
03/19/25
00:17
Troponin I < 0.012
Vital Signs and I&O:
Vital Signs
Temp Pulse Resp BP Pulse Ox
97.4 F 72 16 130/64 94
03/19/25 07:30 03/19/25 09:11 03/19/25 08:50 03/19/25 09:11 03/19/25 08:02
Vital Signs
Temp Pulse Resp BP Pulse Ox
97.4 F 72 16 130/64 94
03/19/25 07:30 03/19/25 09:11 03/19/25 08:50 03/19/25 09:11 03/19/25 08:02
Intake & Output
03/17/25 03/18/25 03/19/25 03/20/25
07:59 07:59 07:59 07:59
Intake Total 1520 / 1520 712 / 712 1080 / 1080
Output Total 120 / 120
Balance 1400 / 1400 712 / 712 1080 / 1080
Physical Exam
Physical Exam
GEN: No distress, awake, alert, oriented x3
HEENT: supple, anicteric, mmm, EOMI
LUNGS: CTA bilaterally, no wheezes/rales
CV: Reg, S1/S2, no murmur
ABD: soft, BS+, NT/ND
EXT: No cyanosis, clubbing, edema
NEURO: Gross non-focal
SKIN: Warm, pink, dry. No rash
[2025-03-19] MEDS: TYLENOL 1000 MG PO ×2 (11:56→17:59)
[2025-03-19 14:13] LABS: Urine Albumin 2+ (Neg - Trace); Urine Bilirubin Negative (Negative); Urine Character Clear (Clear); Urine Color Yellow; Urine Glucose Negative (Negative); Urine Ketone Negative (Negative); Urine Leukocyte Negative (Negative); Urine Nitrite Negative (Negative); Urine Occult Blood Negative (Negative); Urine Urobilinogen Negative (Neg - 1+)
[2025-03-19 14:39] LABS: Urine Amorphous Seen
[2025-03-19 14:42] LABS: Urine Mucus Few
--- NOTE | 2025-03-19 15:54 | W.PN.ORTHO ---
Today's Communication / Plan
-
D/C AM IF STABLE--SURGEON PREFERS HOME WITH HOME CARE IF MOD I/SUPERVISION RW
Assessment
.
Distal Motor Intact: Yes
Dressing:
Clean, dry and intact.
Assessment:
[id number] d/c, BB added-cardiology consulted--ok with surgeon to begin full dose Eliquis on POD#5
Hypoxia POD#1-due to deconditioning, anesthesia/opioid, COPD, suspected MICHEL, body habitus--O2 SAT 95% when standing, lungs fully expanded s/p incentive spirometry--hx clot-VQ scan low probability-decreased breath sounds at bases s/p IVF bolus-Lasix
20mg IV x 1 dose BNP slightly elevated
Recurrent orthostasis-s/p IVF bolus--continue Midodrine for now given need for beta narcisa-minimize opioids
Hx non-occlusive RLE [id number] ambulation-blood clot prevention on POD#5
CKD 3 GFR 44.36-no nephrotoxic agents
Plan
.
Surgery / Date: C3-7 aarti Looney Cha 03/16/25
Activity:
Out of bed.
PT/OT
Discharge Plan: Home w/ VN
Subjective
.
.:
Patient resting comfortably.
Vital Signs and Labs
.
Vital Signs and Labs:
Lab Results
03/19/25 00:17
03/19/25 00:17
Temp Pulse Resp BP Pulse Ox
98.1 F 98 16 135/65 93
03/19/25 11:35 03/19/25 11:35 03/19/25 11:35 03/19/25 11:35 03/19/25 11:35
Non-invasive Hgb result: 12.5
Physical Exam
-
HEENT: No pallor, cyanosis, or jaundice. Throat clear.
NECK: Supple. No JVD.
RESPIRATORY: Lungs clear to auscultation.
CVS: S1, S2 normal. RRR.� No murmur, rub or gallop.
ABDOMEN: Soft, non-tender. No distension. BS+/normal.
EXTREMITIES: strength equal, no calf pain with palpation
METAL CASTING TRADES WORKER: AOx3. No focal deficits. cross tie cutter grossly intact
[2025-03-19] MEDS: ProAmatine 5 MG PO (17:59)
[2025-03-20] MEDS: TYLENOL PO (00:45)
[2025-03-20] MEDS: ULTRAM 50 MG PO ×3 (02:13→15:36)
[2025-03-20] MEDS: TYLENOL 1000 MG PO ×3 (02:13→11:23)
[2025-03-20] MEDS: ULTRAM 25 MG PO (03:09)
[2025-03-20 03:20] VITALS: BP 147/91
[2025-03-20 07:30] VITALS: BP 129/72
--- NOTE | 2025-03-20 07:32 | W.DS.TRANS ---
DC Summary - Dealer Card Room
-
Discharge Instructions:
Sleep Apnea Risk Low
Discharge Diagnosis/Procedures C3-7 aarti Looney Cha 03/16/25, atrial fibrillation
Diet As tolerated
Activity No strenuous activity
Additional Activity frequent ambulation at home-SCD device advised
when sitting or sleeping
Driving Restrictions No driving
Other Services PT,VN,OT
Instructions:
Stand-Alone Forms: [facility]ervical D/C Inst.
Changes to Home Medications: Yes
Discharge Medications:
DC Medications w/original date entered in [facility]
fluticasone fur. 200 mcg-umeclid 62.5 mcg-vilant 25 mcg inhalat.powder (Trelegy Ellipta) 1 inh inhalation DAILY Lung/Breathing Issues 11/06/24
paroxetine HCl 10 mg tablet (Paxil) 10 mg PO DAILY Mental Health/Anxiety 11/06/24
Women's Daily Multivitamin 1 tab PO DAILY 03/09/25
acetaminophen 650 mg tablet,extended release 1,300 mg (2 x 650 mg) PO TID #0 tabs 03/16/25
dexamethasone 4 mg tablet 4 mg PO BID inflammation #6 tabs 03/16/25
docusate sodium 100 mg capsule (Colace) 100 mg PO BID #0 caps 03/16/25
gabapentin 300 mg capsule 300 mg PO HS sleep/pain #10 caps 03/16/25
magnesium hydroxide 400 mg/5 mL oral suspension (Milk of Magnesia) 30 ml PO HS PRN Constipation #1 mL 03/16/25
ondansetron 4 mg disintegrating tablet 4 mg PO Q6H PRN n/v #20 tabs 03/16/25
sennosides 8.6 mg tablet (Senokot) 17.2 mg (2 x 8.6 mg) PO BID laxative #0 tabs 03/16/25
tramadol 50 mg tablet 50 mg PO Q6H PRN 1 tab moderate pain, 2 if severe #30 tabs 03/18/25
apixaban 5 mg tablet (Eliquis) 5 mg PO BID AFIB #60 tabs 03/19/25
metoprolol succinate 25 mg tablet,extended release 24 hr (Toprol XL) 25 mg PO DAILY AFIB/BP #30 tabs 03/19/25
Home Medication Changes
dexamethasone 4 mg tablet 4 mg PO BID inflammation #6 tabs 03/16/25
docusate sodium 100 mg capsule (Colace) 100 mg PO BID #0 caps 03/16/25
gabapentin 300 mg capsule 300 mg PO HS sleep/pain #10 caps 03/16/25
magnesium hydroxide 400 mg/5 mL oral suspension (Milk of Magnesia) 30 ml PO HS PRN Constipation #1 mL 03/16/25
ondansetron 4 mg disintegrating tablet 4 mg PO Q6H PRN n/v #20 tabs 03/16/25
sennosides 8.6 mg tablet (Senokot) 17.2 mg (2 x 8.6 mg) PO BID laxative #0 tabs 03/16/25
tramadol 50 mg tablet 50 mg PO Q6H PRN 1 tab moderate pain, 2 if severe #30 tabs 03/18/25
apixaban 5 mg tablet (Eliquis) 5 mg PO BID AFIB #60 tabs 03/19/25
metoprolol succinate 25 mg tablet,extended release 24 hr (Toprol XL) 25 mg PO DAILY AFIB/BP #30 tabs 03/19/25
Pending Results: No
--- NOTE | 2025-03-20 07:35 | W.PN.ORTHO ---
Today's Communication / Plan
-
d/c when stable-PT/OT/VN
Assessment
.
Distal Motor Intact: Yes
Dressing:
Clean, dry and intact.
Assessment:
L shoulder pain likely due to radiculopathy-advised collar-check troponin and EKG given diaphoresis and pre-syncope with left shoulder pain
Recurrent orthostasis-s/p IVF bolus--continue Midodrine for now given need for beta narcisa-minimize opioids
Constipated-bowel regimen-Dulcolax suppository now
--suspect vasovagal syncope as strong etiology as well--episodes occurring augustine-toileting
[id number]-Cdmwog d/c, BB added-cardiology consulted--ok with surgeon to begin full dose Eliquis on POD#5
Hypoxia -due to deconditioning, anesthesia/opioid, COPD, suspected MICHEL, body habitus--O2 SAT 95% when standing, lungs fully expanded s/p incentive spirometry--hx clot-VQ scan low probability-decreased breath sounds at bases s/p IVF bolus-Lasix 20mg
IV x 1 dose BNP slightly elevated--sats now stable on RA
Hx non-occlusive RLE [id number] ambulation-blood clot prevention on POD#5
CKD 3 GFR 44.36-no nephrotoxic agents
Plan
.
Surgery / Date: C3-7 aarti Looney Cha 03/16/25
DVT Prophylaxis: Other (Eliquis 5mg bid POD#5 03/21/25)
Activity:
Out of bed.
PT/OT
Discharge Plan: Home w/ VN
Subjective
.
.:
Patient resting comfortably.
Vital Signs and Labs
.
Vital Signs and Labs:
Lab Results
03/19/25 00:17
03/19/25 00:17
Temp Pulse Resp BP Pulse Ox
98.3 F 80 16 147/91 90
03/20/25 03:20 03/20/25 03:20 03/20/25 03:20 03/20/25 03:20 03/20/25 03:20
Non-invasive Hgb result: 12.5
Physical Exam
-
HEENT: No pallor, cyanosis, or jaundice. Throat clear.
NECK: Supple. No JVD.
RESPIRATORY: Lungs clear to auscultation.
CVS: S1, S2 normal. RRR.� No murmur, rub or gallop.
ABDOMEN: Soft, non-tender. No distension. BS+/normal.
EXTREMITIES: strength equal, no calf pain with palpation
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
[2025-03-20] MEDS: SPIRIVA RESPIMAT 2.5 MCG 2 PUFF INH (07:36)
[2025-03-20] MEDS: SYMBICORT 160/4.5 MCG INHALER 2 PUFF INH (07:36)
[2025-03-20] MEDS: TOPROL XL 25 MG PO (07:57)
[2025-03-20] MEDS: ProAmatine 5 MG PO (07:57)
[2025-03-20] MEDS: PAXIL 10 MG PO (07:57)
[2025-03-20] MEDS: COLACE 100 MG PO (07:57)
[2025-03-20] MEDS: SENOKOT 17.2 MG PO (07:57)
[2025-03-20] MEDS: DULCOLAX 10 MG RECTAL (07:57)
--- NOTE | 2025-03-20 08:26 | CM ---
CM reviewed medical records. Cm spoke with patient and she is agreeable to discharge to [facility]. CM updated [facility] Admission RN with today discharge.
CM provided patient with Sunny ayala.
Patient stated that her will be available for assistance and transportation home.
PLAN: Home with [facility].
--- NOTE | 2025-03-20 09:18 | W.PN.UPDATE ---
Update Note
Progress Note Update
Patient seen evaluated bedside. Reports the pain is controlled today. She reports she has not had a bowel movement during this hospitalization. She reports that rfid engineer strength weakness and pain she was experiencing in her upper extremities prior
to surgery has essentially completely dissipated. Per nursing continues to have somewhat labile blood pressure.
Incision clean dry and intact
Fairly symmetric rfid engineer strength bilateral upper extremities
Sensation grossly tact light touch symmetric C5-T1 bilateral upper extremities
84-year-old female postop day 4 status post cervical laminoplasty C3-7
Collar comfort only
PT OT
Less than 5 pound lifting restriction for 3 weeks
Okay to initiate Eliquis postop day 5 per primary surgeon and cardiology
Discharge planning
[2025-03-20 09:40] VITALS: BP 105/60; BP 120/74; BP 146/78; PULSE 89; PULSE 93; O2SAT 92
[2025-03-20 11:05] VITALS: BP 147/78
[2025-03-20] MEDS: MILK OF MAGNESIA 30 ML PO (11:23)
[2025-03-20 11:26] LABS: Troponin I < 0.012 ng/ml
--- NOTE | 2025-03-20 12:23 | CM ---
Addendum entered by Gwendolyn Odell RN 03/20/25 14:36:
CM reviewed medical records. Discharge plan unclear due to orthostatic blood pressures and PT/OT unable to safely work with patient.
CM will follow closely.
PLAN: Home with [facility] vs. SNF.
Original Note:
CM reviewed medical records. Patient has not been cleared at this time for discharge. CM will continue to follow as needed.
[2025-03-20] MEDS: ProAmatine PO (13:44)
[2025-03-20 15:30] VITALS: BP 116/57
[2025-03-20 15:44] LABS: Troponin I < 0.012 ng/ml
[2025-03-20 16:00] VITALS: BP 116/57; BP 129/69; PULSE 75; O2SAT 92
== END 2025-03-20 17:05 | disposition home health service (06) | DRG 519 ==
LOC: 2 SOUTH 06:01
PROVIDERS: Nurse Practitioner Gerontology; Physician Assistant Medical; ADMITTING PHYSICIAN Orthopaedic Surgery; FAMILY PHYSICIAN Family Medicine; OTHER PHYSICIAN Internal Medicine Cardiovascular Disease
PROC: 00NW0ZZ Release Cervical Spinal Cord, Open Approach (ICD-10-PCS; 2025-03-16)
DX: M47.12 Other spondylosis with myelopathy, cervical region (principal); M50.021 Cervical disc disorder at C4-C5 level with myelopathy; M50.022 Cervical disc disorder at C5-C6 level with myelopathy; M48.02 Spinal stenosis, cervical region; F41.9 Anxiety disorder, unspecified; I48.0 Paroxysmal atrial fibrillation; Z68.31 Body mass index [BMI] 31.0-31.9, adult; E66.9 Obesity, unspecified; N18.32 Chronic kidney disease, stage 3b; I12.9 Hypertensive chronic kidney disease with stage 1 through stage 4 chronic kidney disease, or unspecified chronic kidney disease; Z86.718 Personal history of other venous thrombosis and embolism; Z87.891 Personal history of nicotine dependence; M50.121 Cervical disc disorder at C4-C5 level with radiculopathy; M50.122 Cervical disc disorder at C5-C6 level with radiculopathy; Z79.82 Long term (current) use of aspirin; Z79.899 Other long term (current) drug therapy; Z11.52 Encounter for screening for COVID-19; M47.22 Other spondylosis with radiculopathy, cervical region
CPT/HCPCS: 36415; 71045; 72040; 76000; 78582; 80048; 80053; 81003; 81015; 83735; 83880; 84443; 84484; 85014; 85018; 85025; 85027; 85379; 86850; 86900; 86901; 87040; 87070; 87502; 87811; 93005; 93306; 94640; 97116; 97162; 97167; 97530; 97535; A9540; A9567; Q9950